=== PATIENT | female | born 1990 | race Caucasian/White ===

== ENCOUNTER 2017-01-04 19:28 | Emergency (ER) | payer BC, OTHER ==
--- NOTE | 2017-01-04 21:58 | ER Document Report ---
ED General - General Chief Complaint: Chest Pain Stated Complaint: CHEST PAIN,SHORTNESS OF BREATH,DIZZY Time Seen by Provider: 01/04/17 21:57 Notes: Patient is a 26-year-old female presents with complaint of chest pain. Chest pain came on suddenly while folding baby close. She also has some associated shortness of breath. Pain is starting to subside. Pain is substernal and nonradiating. No vomiting. No other complaints at this time. She does have history of hypertension. She says her blood pressure was high at that time. She does take propranolol for her high blood pressure. She does have a family history of hypertension. She says that her brother had a heart attack but he did not have stents placed. No other known history of coronary disease. No history of PE or DVT. No recent long trips. No recent surgeries. No recent leg pain or leg swelling. TRAVEL OUTSIDE OF THE [place] IN LAST 30 DAYS: No - Related Data Allergies/Adverse Reactions: No Known Allergies Allergy (Verified 01/05/16 06:04) Past Medical History - Social History Smoking Status: Never Smoker Frequency of alcohol use: None Drug Abuse: None Family History: Reviewed & Not Pertinent, DM Patient has suicidal ideation: No Patient has homicidal ideation: No - Past Medical History Cardiac Medical History: Reports: Hx Hypertension Denies: Hx Heart Attack Pulmonary Medical History: Reports: Hx Asthma - CHILDHOOD, Hx Pneumonia - CHILD X3 Denies: Hx Bronchitis, Hx COPD, Hx Tuberculosis Neurological Medical History: Denies: Hx Seizures Renal/ Medical History: Denies: Hx Peritoneal Dialysis GI Medical History: Reports: Hx Gastritis Musculoskeltal Medical History: Reports Hx Arthritis - WITH Psychiatric Medical History: Denies: Hx Depression Past Surgical History: Reports: Hx Cholecystectomy, Hx Orthopedic Surgery. Denies: Hx Hysterectomy - Immunizations Hx Diphtheria, Pertussis, Tetanus Vaccination: No Hx Pneumococcal Vaccination: 05/25/14 Review of Systems - Review of Systems Notes: My Normal Review Basic REVIEW OF SYSTEMS: CONSTITUTIONAL : Denies fever, chills, or sweats. Denies recent illness. EENT: Denies eye, ear, throat, or mouth pain or symptoms. Denies nasal or sinus congestion. CARDIOVASCULAR: Had chest pain RESPIRATORY: Denies cough, cold, or chest congestion. Denies shortness of breath, difficulty breathing, or wheezing. GASTROINTESTINAL: Denies abdominal pain. Denies nausea, vomiting, or diarrhea. Denies constipation. Last BM: GENITOURINARY: Denies difficulty urinating, painful urination, burning, frequency, or blood in urine. MUSCULOSKELETAL: Denies neck or back pain or joint pain or swelling. SKIN: Denies rash or skin lesions. NEUROLOGICAL: Denies altered mental status or loss of consciousness. Denies headache. Denies weakness or paralysis or loss of use of either side. Denies problems with gait or speech. Denies sensory or motor loss. ALL OTHER SYSTEMS REVIEWED AND NEGATIVE. Physical Exam - Vital signs Vitals: Temp Pulse Resp BP Pulse Ox 99.5 F 111 H 20 136/90 H 99 01/04/17 20:17 01/04/17 20:17 01/04/17 20:17 01/04/17 20:01/04/17 20:17 - Notes Notes: General Appearance: Well nourished, alert, cooperative, no acute distress, no obvious discomfort. Well-appearing. Vitals: reviewed, See vital signs table. Head: no swelling or tenderness to the head Eyes: PERRL, EOMI, Conjuctiva clear Mouth: No decreasd moisture Lungs: No wheezing, No rales, No rhonci, No accessory muscle use, good air exchange bilaterally. Heart: Normal rate, Regular rythm, No murmur, no rub Abdomen: Normal BS, soft, No rigidity, No abdominal tenderness, No guarding, no rebound, no abdominal masses, no organomegaly Extremities: strength 5/5 in all extremities, good pulses in all extremities, no swelling or tenderness in the extremities, no edema. Skin: warm, dry, appropriate color, no rash Neuro: speech clear, oriented x 3, normal affect, responds appropriately to questions. Course - Re-evaluation Re-evalutation: 01/05/17 07:09 D-dimer is obtained patient was initially tachycardic when she arrived. D- dimer was positive and therefore CT images obtained and this was negative for PE. Patient troponin is negative. I did not suspect coronary disease based on her age. She does have history of hypertension and it is now much better controlled. At this time I feel she is safe to be discharged home. Encouraged her follow-up closely with her primary care doctor. Encouraged to return here if she has worsening pain, difficulty breathing, fevers, or feels unwell. Patient agrees with plan and will be discharged home. Dictation of this chart was performed using voice recognition software; therefore, there may be some unintended grammatical errors. - Vital Signs Vital signs: Temp Pulse Resp BP Pulse Ox 99.5 F 111 H 17 115/84 97 01/04/17 20:17 01/04/17 20:17 01/05/17 02:54 01/05/17 02:54 01/05/17 02:53 - Laboratory Result Diagrams: 01/04/17 21:57 01/04/17 21:57 Laboratory results interpreted by me: 01/04/17 01/04/17 01/04/17 21:57 21:57 21:57 Seg Neutrophils % 41.6 L Lymphocytes % 45.3 H D-Dimer 0.65 H Carbon Dioxide 20 L AST 54 H ALT 118 H Creatine Kinase 183 H Total Protein 8.5 H - EKG Interpretation by Me Additional EKG results interpreted by me: 01/04/17 21:57 EKG is reviewed and interpreted by me. EKG shows sinus tachycardia with a rate of [address] segment elevation or depression. No ischemic T-wave inversions. NM interval, QRS duration, QTc intervals are within normal range. No old EKG available for comparison. Discharge - Discharge Clinical Impression: Chest pain Qualifiers: Chest pain type: unspecified Qualified Code(s): R07.9 - Chest pain, unspecified Condition: Good Disposition: HOME, SELF-CARE Additional Instructions: CHEST PAIN OF UNCLEAR CAUSE: The exact cause of your chest pain isn't clear. Fortunately, there is no evidence of a dangerous medical condition. Further testing may be required to find the source of the pain. Most often, we find that this pain is coming from the chest wall -- the muscles or rib joints in the chest. But chest pain can come from the lung and lung lining, the esophagus, the heart valves or heart lining, and even the stomach or gallbladder. Rest. Eat lightly until the pain is gone. We may prescribe medicine for pain and inflammation. You should call the physician immediately if the pain radiates to the shoulder, jaw or arms; if you start to run a fever or develop a cough; or if you develop shortness of breath, or other new or alarming symptoms. NORMAL EXAM AND WORKUP: At this time, your examination and workup show no significant abnormality. No significant abnormal physical findings were noted. All laboratory, EKG, and imaging (x-ray, CT scans) studies that were ordered show no significant abnormality. Although your examination and all studies that were ordered showed no significant abnormal finding, there are no examinations and no studies that are 100% accurate. There is always the possibility that some abnormality could exist and not be detected with physical examination or within the limits and capabilities of laboratory and other studies. You should return or follow up as you were instructed on your visit today for further evaluation if your symptoms do not resolve. FOLLOW-UP CARE: If you have been referred to a physician for follow-up care, call the physician s office for an appointment as you were instructed or within the next two days. If you experience worsening or a significant change in your symptoms, notify the physician immediately or return to the Emergency Department at any time for re-evaluation. Please return follow up with your doctor in 3-5 days for close reevaluation. please return to the ER immediately if you have worsening pain, difficulty breathing, fevers, or feel unwell. Forms: Return to Work
--- NOTE | 2017-01-04 22:16 | RADIOLOGY REPORT (SQ) ---
EXAM DESCRIPTION: CHEST SINGLE VIEW COMPLETED DATE/TIME: 01/04/2017 9:57 pm REASON FOR STUDY: CP/ SOB COMPARISON: 11/04/2015 EXAM PARAMETERS: NUMBER OF VIEWS: One view. TECHNIQUE: Single frontal radiographic view of the chest acquired. RADIATION DOSE: NA LIMITATIONS: None. FINDINGS: LUNGS AND PLEURA: No opacities, masses or pneumothorax. No pleural effusion. MEDIASTINUM AND HILAR STRUCTURES: No masses. Contour normal. HEART AND VASCULAR STRUCTURES: Heart normal in size. Normal vasculature. BONES: No acute findings. HARDWARE: None in the chest. OTHER: No other significant finding. IMPRESSION: NO ACUTE RADIOGRAPHIC FINDING IN THE CHEST. TECHNICAL DOCUMENTATION: JOB ID: [id number]
[2017-01-04 22:23] LABS: ABSOLUTE BASOPHILS # (AUTO) 0.1 10^3/uL (0.0-0.2); ABSOLUTE EOSINOPHILS # (AUTO) 0.1 10^3/uL (0.0-0.6); ABSOLUTE LYMPHOCYTES (AUTO) 2.8 10^3/uL (0.5-4.7); ABSOLUTE MONOCYTES (AUTO) 0.6 10^3/uL (0.1-1.4); ABSOLUTE NEUT (AUTO) 2.6 10^3/uL (1.7-8.2); EOSINOPHILS % (AUTO) 2.4 % (0-6); HEMATOCRIT 42.3 % (36.0-47.0); HEMOGLOBIN 14.2 g/dL (12.0-15.5); HGB HCT DIFFERENCE 0.3; LYMPHOCYTES % (AUTO) 45.3 % (13-45); MEAN CORPUSCULAR HEMOGLOBIN 30.3 pg (27.0-33.4); MEAN CORPUSCULAR HGB CONC 33.5 g/dL (32.0-36.0); MEAN CORPUSCULAR VOLUME 90 fl (80-97); MONOCYTES % (AUTO) 9.7 % (3-13); RED BLOOD COUNT 4.69 10^6/uL (3.72-5.28); RED CELL DISTRIBUTION WIDTH 12.7 % (11.5-14.0); SEGMENTED NEUTROPHILS % (AUTO) 41.6 % (42-78); WHITE BLOOD COUNT 6.2 10^3/uL (4.0-10.5)
[2017-01-04 22:41] LABS: ALANINE AMINOTRANSFERASE 118 U/L (9-52); ALKALINE PHOSPHATASE 71 U/L (38-126); ANION GAP 15 (5-19); ASPARTATE AMINO TRANSFERASE 54 U/L (14-36); BILIRUBIN,DIRECT 0.3 mg/dL (0.0-0.4); BILIRUBIN,TOTAL 0.4 mg/dL (0.2-1.3); BLOOD UREA NITROGEN 18 mg/dL (7-20); CALCIUM 10.2 mg/dL (8.4-10.2); CARBON DIOXIDE 20 mmol/L (22-30); CHLORIDE 107 mmol/L (98-107); CREATINE KINASE 183 U/L (30-135); CREATININE RESULT 0.55 mg/dL (0.52-1.25); GLUCOSE 93 mg/dL (75-110); POTASSIUM 3.8 mmol/L (3.6-5.0); TOTAL PROTEIN 8.5 g/dL (6.3-8.2)
[2017-01-04 22:55] LABS: TROPONIN I < 0.012 ng/mL
[2017-01-04] MEDS ORDERED: NORMAL SALINE 1000 ML 1,000 ML IV ONE (23:36)
--- NOTE | 2017-01-05 01:29 | RADIOLOGY REPORT (SQ) ---
EXAM DESCRIPTION: CTA CHEST COMPLETED DATE/TIME: 01/05/2017 1:08 am REASON FOR STUDY: chest pain, dyspnea COMPARISON: 2.4.14 TECHNIQUE: CT scan of the chest performed using helical scanning technique with dynamic intravenous contrast injection. Images reviewed with lung, soft tissue and bone windows. Reconstructed coronal and sagittal MPR images reviewed. Additional 3 dimensional post-processing performed to develop Maximal Intensity Projection images (CA P). All images stored on PACS. All CT scanners at this facility use dose modulation, iterative reconstruction, and/or weight based d osing when appropriate to reduce radiation dose to as low as reasonably achievable (ALARA). [facility]: Dose Right [facility]: CareDose [facility]: Dose Right [facility]: Teradose 4D [facility]: IronPearl CONTRAST TYPE AND DOSE: contrast/concentration: Isovue 370.00 mg/ml; Total Contrast Delivered: 100.0 ml; Total Saline Delivered: 40.0 ml RENAL FUNCTION: Creatinine 0.6 RADIATION DOSE: Up-to-date CT equipment and radiation dose reduction techniques were employed. CTDIv ol: 27.4 mGy. DLP: 787 mGy-cm. . LIMITATIONS: None. FINDINGS: LUNGS AND PLEURA: 2, 3 mm noncalcified pulmonary nodules of the left lower lobe without jaramillo spicious interval change compared with prior exam from 08/06/2013. AORTA AND GREAT VESSELS: No aneurysm or dissection. HEART: No pericardial effusion. PULMONARY ARTERIES: No emboli visualized in the main pulmonary arteries or the segmental branches. HILAR AND MEDIASTINAL STRUCTURES: No identified masses or abnormal nodes. Minimal residual thymic ti ssue in the anterior mediastinum. HARDWARE: None in the chest. UPPER ABDOMEN: Moderate hepatic steatosis. Cholecystectomy clips. 0.3 cm likely benign cortical cys t of the left kidney, upper pole. THYROID AND OTHER SOFT TISSUES: No masses. No adenopathy. BONES: No acute or significant finding. 3D MIPS: Confirm above findings. OTHER: No other significant finding. IMPRESSION: No acute or suspicious findings. NO PULMONARY EMBOLI. TECHNICAL DOCUMENTATION: JOB ID: [id number] Quality ID # [id number]: Final reports with documentation of one or more dose reduction techniques (e.g., Au tomated exposure control, adjustment of the mA and/or kV according to patient size, use of iterative reconstruction technique) 2010 [employer]- All Rights Reserved
[2017-01-05 03:02] VITALS: BP 115/84
--- NOTE | 2017-01-05 07:57 | EKG REPORT ---
SEVERITY:- OTHERWISE NORMAL ECG - SINUS TACHYCARDIA : Confirmed by: David Lovell MD 05-Jan-2017 07:56:33
== END 2017-01-05 03:02 | disposition home or self-care (01) ==
LOC: ER 19:28
DX: R07.9 Chest pain, unspecified (principal); R06.02 Shortness of breath; R42 Dizziness and giddiness
CPT/HCPCS: 36415; 71010; 71275; 80053; 82550; 82553; 84484; 84703; 85025; 85379; 93005; 93010; 99285

== ENCOUNTER 2018-08-18 04:55 | Emergency (ER) | payer BC, OTHER ==
[2018-08-18] MEDS ORDERED: NORMAL SALINE 1000 ML 1,000 ML IV ONE ×2 (06:13→07:40)
[2018-08-18 06:38] LABS: ABSOLUTE EOSINOPHILS # (AUTO) 0.1 10^3/uL (0.0-0.6); ABSOLUTE MONOCYTES (AUTO) 0.2 10^3/uL (0.1-1.4); ABSOLUTE NEUT (AUTO) 2.7 10^3/uL (1.7-8.2); BASOPHILS % (AUTO) 0.4 % (0-2); EOSINOPHILS % (AUTO) 2.6 % (0-6); HEMATOCRIT 39.9 % (36.0-47.0); HEMOGLOBIN 13.9 g/dL (12.0-15.5); LYMPHOCYTES % (AUTO) 40.1 % (13-45); MEAN CORPUSCULAR HEMOGLOBIN 31.6 pg (27.0-33.4); MEAN CORPUSCULAR HGB CONC 34.9 g/dL (32.0-36.0); MEAN CORPUSCULAR VOLUME 90 fl (80-97); MONOCYTES % (AUTO) 4.8 % (3-13); PLATELET COUNT 205 10^3/uL (150-450); RED BLOOD COUNT 4.41 10^6/uL (3.72-5.28); RED CELL DISTRIBUTION WIDTH 12.5 % (11.5-14.0); SEGMENTED NEUTROPHILS % (AUTO) 52.1 % (42-78); TOTAL CELLS COUNTED % (AUTO) 100 %; WHITE BLOOD COUNT 5.1 10^3/uL (4.0-10.5)
[2018-08-18 06:43] LABS: APPEARANCE,URINE CLOUDY; BILIRUBIN,URINE NEGATIVE (NEGATIVE); COLOR,URINE AMBER; GLUCOSE, URINE NEGATIVE (NEGATIVE); KETONES,URINE NEGATIVE (NEGATIVE); LEUKOCYTE ESTERASE,URINE LARGE (NEGATIVE); NITRITE,URINE NEGATIVE (NEGATIVE); PROTEIN,URINE 30 mg/dL (NEGATIVE); URINE SPECIFIC GRAVITY 1.029; UROBILINOGEN,URINE NEGATIVE mg/dL (<2.0)
[2018-08-18 07:00] LABS: ALANINE AMINOTRANSFERASE 454 U/L (9-52); ALBUMIN 4.8 g/dL (3.5-5.0); ALKALINE PHOSPHATASE 89 U/L (38-126); ANION GAP 11 (5-19); ASPARTATE AMINO TRANSFERASE 212 U/L (14-36); BILIRUBIN,DIRECT 0.2 mg/dL (0.0-0.4); BILIRUBIN,TOTAL 0.5 mg/dL (0.2-1.3); BLOOD UREA NITROGEN 17 mg/dL (7-20); CALCIUM 9.9 mg/dL (8.4-10.2); CARBON DIOXIDE 27 mmol/L (22-30); CHLORIDE 106 mmol/L (98-107); GLUCOSE 111 mg/dL (75-110); POTASSIUM 4.2 mmol/L (3.6-5.0); SODIUM 144.2 mmol/L (137-145); TOTAL PROTEIN 7.9 g/dL (6.3-8.2); TRIGLYCERIDES 74 mg/dL (<150)
[2018-08-18 07:35] LABS: ACETAMINOPHEN < 10 ug/mL (10-30); ALCOHOL < 10 mg/dL (NONE DETECTED); LIPASE 9910.4 U/L (23-300); SALICYLATE < 1.0 mg/dL (2.0-20.0)
[2018-08-18] MEDS ORDERED: FAMOTIDINE INJ/PF 20 MG/2 ML SDV IV ONE (07:41)
--- NOTE | 2018-08-18 07:55 | ER Document Report ---
ED General - General Chief Complaint: Abdominal Pain Stated Complaint: ABDOMINAL PAIN Time Seen by Provider: 08/18/18 06:11 Primary Care Provider: DAVE CAMARA PA [Primary Care Provider] - Follow up as needed TRAVEL OUTSIDE OF THE [place] IN LAST 30 DAYS: No - HPI Patient complains to provider of: Epigastric abdominal pain Notes: Patient coming in for evaluation of epigastric abdominal pain. Patient states that history of pancreatitis patient states she has had a gallbladder removed patient states her doctors are unaware why she continues to get pancreatitis patient states pain is similar to that in the past. Patient states she has been able tolerate water however pain is increased whenever she eats food. Patient denies any fevers chills nausea vomiting or diarrhea. Patient is unaware of her status. Patient denies any trauma to the area states symptoms ongoing for the last 48 hours. - Related Data Allergies/Adverse Reactions: No Known Allergies Allergy (Verified 01/05/16 06:04) Past Medical History - Social History Smoking Status: Unknown if Ever Smoked Family History: Reviewed & Not Pertinent, DM Patient has suicidal ideation: No Patient has homicidal ideation: No - Past Medical History Cardiac Medical History: Reports: Hx Hypertension Denies: Hx Heart Attack Pulmonary Medical History: Reports: Hx Asthma - CHILDHOOD, Hx Pneumonia - CHILD X3 Denies: Hx Bronchitis, Hx COPD, Hx Tuberculosis Neurological Medical History: Denies: Hx Seizures Renal/ Medical History: Denies: Hx Peritoneal Dialysis GI Medical History: Reports: Hx Gastritis Musculoskeletal Medical History: Reports Hx Arthritis - WITH Psychiatric Medical History: Denies: Hx Depression Past Surgical History: Reports: Hx Cholecystectomy, Hx Orthopedic Surgery. Denies: Hx Hysterectomy - Immunizations Hx Diphtheria, Pertussis, Tetanus Vaccination: No Hx Pneumococcal Vaccination: 05/25/14 Review of Systems - Review of Systems Constitutional: No symptoms reported EENT: No symptoms reported Cardiovascular: No symptoms reported Respiratory: No symptoms reported Gastrointestinal: Abdominal pain Genitourinary: No symptoms reported Female Genitourinary: No symptoms reported Musculoskeletal: No symptoms reported Skin: No symptoms reported Hematologic/Lymphatic: No symptoms reported Neurological/Psychological: No symptoms reported -: Yes All other systems reviewed and negative Physical Exam - Vital signs Vitals: Temp Pulse Resp BP Pulse Ox 98.7 F 93 18 137/87 H 97 08/18/18 05:00 08/18/18 05:00 08/18/18 05:00 08/18/18 05:00 08/18/18 05:00 Interpretation: Normal - General General appearance: Appears well, Alert - HEENT Head: Normocephalic, Atraumatic Eyes: Normal Pupils: PERRL - Respiratory Respiratory status: No respiratory distress Chest status: Nontender Breath sounds: Normal Chest palpation: Normal - Cardiovascular Rhythm: Regular Heart sounds: Normal auscultation Murmur: No - Abdominal Inspection: Normal Distension: No distension Bowel sounds: Normal Tenderness: Tender - Mild epigastric tenderness Organomegaly: No organomegaly - Back Back: Normal, Nontender - Extremities General upper extremity: Normal inspection, Nontender, Normal color, Normal ROM, Normal temperature General lower extremity: Normal inspection, Nontender, Normal color, Normal ROM, Normal temperature, Normal weight bearing. No: Kj's sign - Neurological Neuro grossly intact: Yes Cognition: Normal Orientation: AAOx4 Jass Coma Scale Eye Opening: Spontaneous [place] Coma Scale Verbal: Oriented [place] Coma Scale Motor: Obeys Commands Jass Coma Scale Total: 15 Speech: Normal Motor strength normal: LUE, RUE, LLE, RLE Sensory: Normal - Psychological Associated symptoms: Normal affect, Normal mood - Skin Skin Temperature: Warm Skin Moisture: Dry Skin Color: Normal Course - Re-evaluation Re-evalutation: 08/18/18 07:54 Laboratory studies do show the patient does have elevation of lipase consistent with pancreatitis. 08/18/18 14:15 Patient has elevation in her lipase however she is able to tolerate p.o. Resting criteria is 1. Patient scratch screen was unable to be performed because of the amount of opiates present declined single at this time. Patient otherwise feeling better after dose of morphine will send the patient home with oral morphine for the next few days diet instructions were given to the patient patient states understanding of need to return to the ER - Vital Signs Vital signs: Temp Pulse Resp BP Pulse Ox 98.3 F 75 18 132/96 H 94 08/18/18 10:50 08/18/18 10:50 08/18/18 05:00 08/18/18 10:50 08/18/18 10:50 - Laboratory Result Diagrams: 08/18/18 05:35 08/18/18 05:35 Laboratory results interpreted by me: 08/18/18 08/18/18 05:35 06:18 Creatinine 0.41 L Glucose 111 H AST 212 H ALT 454 H Lactate Dehydrogenase 371 H Lipase 9910.4 H Urine Protein 30 H Ur Leukocyte Esterase LARGE H Salicylates < 1.0 L Acetaminophen < 10 L Discharge - Discharge Clinical Impression: Acute recurrent pancreatitis, LFT elevation Condition: Good Disposition: HOME, SELF-CARE Instructions: Oral Narcotic Medication ([facility]), Pancreatitis ([facility]) Additional Instructions: Laboratory studies do show signs of acute pink otitis was correlated with your CAT scan there is no complications no signs of infection pseudocyst no signs of any obstruction of your biliary ducts. Highly recommend a clear liquid diet for the next 24-48 hours after that time he can advance as tolerated please avoid foods that are fatty greasy or oily. Please follow-up with your primary care physician. Also recommend following up with the GI physicians listed. Return to the ER if you develop a fever or cannot tolerate fluids. Take pain medic ation as prescribed take nausea medication as prescribed. Prescriptions: Morphine Sulfate [Morphine Ir 15 Mg Tablet] 15 mg PO TID #12 tablet Omeprazole 20 mg PO DAILY #30 capsule. Ondansetron [Zofran Odt 4 mg Tablet] 1 - 2 tab PO Q4H PRN #30 tab.rapdis PRN Reason: For Nausea/Vomiting Forms: Return to Work Referrals: DAVE CAMARA PA [Primary Care Provider] - Follow up as needed
[2018-08-18 07:58] LABS: URINE AMPHETAMINES SCREEN NEGATIVE; URINE BARBITURATES SCREEN NEGATIVE; URINE BENZODIAZEPINES SCREEN NEGATIVE; URINE COCAINE SCREEN NEGATIVE; URINE MARIJUANA (THC) SCREEN NEGATIVE; URINE METHADONE SCREEN NEGATIVE; URINE PHENCYCLIDINE SCREEN NEGATIVE
[2018-08-18] MEDS ORDERED: ONDANSETRON HCL INJ/PF 4 MG/2 ML SDV IV ONE (08:05)
[2018-08-18] MEDS ORDERED: MORPHINE SULFATE 10 MG/ML INJ IV ONE (08:05)
--- NOTE | 2018-08-18 08:58 | RADIOLOGY REPORT (SQ) ---
EXAM DESCRIPTION: CT ABD/PELVIS WITH IV ONLY COMPLETED DATE/TIME: 08/18/2018 8:27 am REASON FOR STUDY: epi with elevated lipase COMPARISON: CT angio chest 01/05/2017 MRCP 05/25/2014 CT abdomen pelvis 03/01/2014 TECHNIQUE: CT scan of the abdomen and pelvis performed using helical scanning technique with dynamic intravenous contrast injection. No oral contrast. Images reviewed with lung, soft tissue, and bone windows. Reconstructed coronal and sagittal MPR images reviewed. Delayed images for evaluation of the urinary system also acquired. All images stored on PACS. All CT scanners at this facility use dose modulation, iterative reconstruction, and/or weight based d osing when appropriate to reduce radiation dose to as low as reasonably achievable (ALARA). [facility]: Dose Right [facility]: CareDose [facility]: Dose Right [facility]: Teradose 4D [facility]: Tape TV CONTRAST TYPE AND DOSE: contrast/concentration: Isovue 350.00 mg/ml; Total Contrast Delivered: 100.0 ml; Total Saline Delivered: 72.0 ml RENAL FUNCTION: GFR > 60. RADIATION DOSE: CT Rad equipment meets quality standard of care and radiation dose reduction techniq ues were employed. CTDIvol: 18.2 - 20.7 mGy. DLP: 2213 mGy-cm.. LIMITATIONS: None. FINDINGS: LOWER CHEST: No significant findings. No nodules or infiltrates. LIVER: Normal size. No masses. No dilated ducts. SPLEEN: Normal size. No focal lesions. PANCREAS: Pancreatic tail is thickened, there is mild surrounding inflammation throughout the [place] creatic fat without pseudocyst formation. Findings indicate acute pancreatitis. No portal vein or s plenic vein thrombosis GALLBLADDER: Surgically absent ADRENAL GLANDS: No significant masses or asymmetry. RIGHT KIDNEY AND URETER: No solid masses. No significant calcifications. No hydronephrosis or hyd roureter. LEFT KIDNEY AND URETER: No solid masses. No significant calcifications. No hydronephrosis or hydr oureter. AORTA AND VESSELS: No aneurysm. No dissection. Renal arteries, SMA, celiac without stenosis. RETROPERITONEUM: No retroperitoneal adenopathy, hemorrhage or masses. BOWEL AND PERITONEAL CAVITY: No masses or inflammatory changes. No free fluid or peritoneal masses. Few colon diverticuli without CT signs of diverticulitis APPENDIX: Normal. PELVIS: No mass. No free fluid. Normal bladder. ABDOMINAL WALL: No masses. No hernias. BONES: No significant or acute findings. OTHER: No other significant finding. IMPRESSION: Acute pancreatitis Post cholecystectomy TECHNICAL DOCUMENTATION: JOB ID: [id number] Quality ID # [id number]: Final reports with documentation of one or more dose reduction techniques (e.g., Au tomated exposure control, adjustment of the mA and/or kV according to patient size, use of iterative reconstruction technique) 2010 [employer]- All Rights Reserved Reading location - IP/workstation name: [email or web address]
[2018-08-18] MEDS ORDERED: LANSOPRAZOLE 30 MG TAB.RAP.DR PO ONE (10:53)
[2018-08-18 11:08] VITALS: BP 132/96
== END 2018-08-18 11:01 | disposition home or self-care (01) ==
LOC: ER 04:55
DX: K86.1 Other chronic pancreatitis (principal); R79.89 Other specified abnormal findings of blood chemistry; R10.9 Unspecified abdominal pain; R10.13 Epigastric pain; I10 Essential (primary) hypertension
CPT/HCPCS: 99284; 96361; 96374; 96375; 36415; 80307 ×4; 83615; 83690; 84478; 84703; 85025; 80053; 81001; 74177; J2270; J2405; J7030; S0028

== ENCOUNTER 2018-08-18 22:11 | Inpatient (IN) | payer BC ==
[2018-08-18] MEDS ORDERED: HYDROMORPHONE HCL INJ/PF 2 MG/ML AMPULE IV ONE (23:16)
[2018-08-18] MEDS ORDERED: ONDANSETRON HCL INJ/PF 4 MG/2 ML SDV IV ONE (23:16)
[2018-08-18] MEDS ORDERED: NORMAL SALINE 1000 ML 1,000 ML IV ONE (23:17)
[2018-08-18 23:57] LABS: ABSOLUTE EOSINOPHILS # (AUTO) 0.1 10^3/uL (0.0-0.6); ABSOLUTE MONOCYTES (AUTO) 0.3 10^3/uL (0.1-1.4); ABSOLUTE NEUT (AUTO) 5.1 10^3/uL (1.7-8.2); BASOPHILS % (AUTO) 0.3 % (0-2); EOSINOPHILS % (AUTO) 2.1 % (0-6); HEMATOCRIT 39.2 % (36.0-47.0); HEMOGLOBIN 13.8 g/dL (12.0-15.5); MEAN CORPUSCULAR HEMOGLOBIN 31.7 pg (27.0-33.4); MEAN CORPUSCULAR HGB CONC 35.2 g/dL (32.0-36.0); MEAN CORPUSCULAR VOLUME 90 fl (80-97); MONOCYTES % (AUTO) 5.1 % (3-13); PLATELET COUNT 199 10^3/uL (150-450); RED BLOOD COUNT 4.35 10^6/uL (3.72-5.28); RED CELL DISTRIBUTION WIDTH 12.4 % (11.5-14.0); SEGMENTED NEUTROPHILS % (AUTO) 77.5 % (42-78); TOTAL CELLS COUNTED % (AUTO) 100 %; WHITE BLOOD COUNT 6.5 10^3/uL (4.0-10.5)
[2018-08-18 23:58] LABS: ALANINE AMINOTRANSFERASE 386 U/L (9-52); ALBUMIN 4.8 g/dL (3.5-5.0); ALKALINE PHOSPHATASE 82 U/L (38-126); ANION GAP 12 (5-19); ASPARTATE AMINO TRANSFERASE 156 U/L (14-36); BILIRUBIN,DIRECT 0.2 mg/dL (0.0-0.4); BILIRUBIN,TOTAL 0.8 mg/dL (0.2-1.3); BLOOD UREA NITROGEN 10 mg/dL (7-20); CALCIUM 9.7 mg/dL (8.4-10.2); CARBON DIOXIDE 25 mmol/L (22-30); CHLORIDE 105 mmol/L (98-107); GLUCOSE 106 mg/dL (75-110); SODIUM 141.6 mmol/L (137-145); TOTAL PROTEIN 7.7 g/dL (6.3-8.2)
[2018-08-19 00:26] LABS: LIPASE 4430.1 U/L (23-300)
[2018-08-19] MEDS ORDERED: PROMETHAZINE HCL INJ 25 MG/1 ML VIAL IM ONE (00:32)
--- NOTE | 2018-08-19 00:33 | ER Document Report ---
ED General - General Chief Complaint: Abdominal Pain Stated Complaint: DECREASED FLUID INTAKE Time Seen by Provider: 08/18/18 23:00 Primary Care Provider: DAVE CAMARA PA [Primary Care Provider] - Follow up as needed Notes: Patient is a 28-year-old female who has a history of acute recurrent pancreatitis. Looking through records it looks like it happens approximately once a year. Exact cause is not clear. She has had multiple workups which have been negative for etiology. She is her had her gallbladder out. She does not drink alcohol on a regular basis. Her triglycerides are typically normal. She is not a diabetic. She was seen this morning. At that time her lipase was over 9000. CT scan showed inflammation around the pancreas. She said she want to try home therapy. She went home and did not eat any food. She will try to drink liquids. She is been unable to hold down liquids. She does have r ecurrent pain and therefore she came back to the ER. TRAVEL OUTSIDE OF THE [place] IN LAST 30 DAYS: No - Related Data Allergies/Adverse Reactions: No Known Allergies Allergy (Verified 01/05/16 06:04) Past Medical History - Social History Smoking Status: Never Smoker Frequency of alcohol use: Rare Drug Abuse: None Family History: Reviewed & Not Pertinent, DM Patient has suicidal ideation: No Patient has homicidal ideation: No - Past Medical History Cardiac Medical History: Reports: Hx Hypertension Denies: Hx Heart Attack Pulmonary Medical History: Reports: Hx Asthma, Hx Pneumonia Denies: Hx Bronchitis, Hx COPD, Hx Tuberculosis Neurological Medical History: Reports: Hx Migraine. Denies: Hx Seizures Renal/ Medical History: Denies: Hx Peritoneal Dialysis GI Medical History: Reports: Hx Gastritis Musculoskeletal Medical History: Reports Hx Arthritis - WITH Psychiatric Medical History: Denies: Hx Depression Past Surgical History: Reports: Hx Cholecystectomy, Hx Orthopedic Surgery. Denies: Hx Hysterectomy - Immunizations Hx Diphtheria, Pertussis, Tetanus Vaccination: No Hx Pneumococcal Vaccination: 05/25/14 Review of Systems - Review of Systems Notes: My Normal Review Basic REVIEW OF SYSTEMS: CONSTITUTIONAL : Denies fever, chills, or sweats. Denies recent illness. CARDIOVASCULAR: Denies chest pain. RESPIRATORY: Denies cough, cold, or chest congestion. Denies shortness of breath, difficulty breathing, or wheezing. GASTROINTESTINAL: Upper abdominal pain. Recurrent vomiting. GENITOURINARY: Denies difficulty urinating, painful urination, burning, freq uency, or blood in urine. FEMALE GENITOURINARY: Denies vaginal bleeding, abnormal or irregular periods. LMP: MUSCULOSKELETAL: Denies neck or back pain or joint pain or swelling. SKIN: Denies rash or skin lesions. NEUROLOGICAL: Denies altered mental status or loss of consciousness. Denies headache. Denies weakness or paralysis or loss of use of either side. Denies problems with gait or speech. Denies sensory or motor loss. ALL OTHER SYSTEMS REVIEWED AND NEGATIVE. Physical Exam - Vital signs Vitals: Temp Pulse Resp BP Pulse Ox 100.3 F 111 H 23 H 162/101 H 100 08/18/18 22:22 08/18/18 22:22 08/18/18 22:22 08/18/18 22:22 08/18/18 22:22 - Notes Notes: General Appearance: Well nourished, alert, cooperative, no acute distress, moderate obvious discomfort. Vitals: reviewed, See vital signs table. Head: no swelling or tenderness to the head Eyes: PERRL, EOMI, Conjuctiva clear Mouth: No decreasd moisture Lungs: No wheezing, No rales, No rhonci, No accessory muscle use, good air exchange bilaterally. Heart: Tachycardic rate, Regular rythm, No murmur, no rub Abdomen: Normal BS, soft, No rigidity, moderate upper abdominal tenderness to palpation, No guarding, no rebound, no abdominal masses, no organomegaly Extremities: good pulses in all extremities, no edema. Skin: warm, dry, appropriate color, no rash Neuro: speech clear, oriented x 3, normal affect, responds appropriately to questions. Course - Re-evaluation Re-evalutation: 08/19/18 00:33 On reevaluation patient's pain is improving however she still actively vomiting. I have ordered some Phenergan. Her lipase is improving however her symptoms are still consistent she is unable to hold down even liquids and therefore I feel it is appropriate to have her admitted. I will contact the hospitalist for discussion for admission. I spoke with Dr. Pleitez, hospitalist, and he agrees to evaluate the patient for admission. The exact cause of the patient's pancreatitis is not clear. I looked through records and she had multiple workups. Triglycerides are usually normal. She is already had her gallbladder out. Is not clear why she keeps getting pancreatitis. Dictation of this chart was performed using voice recognition software; therefore, there may be some unintended grammatical errors. 08/19/18 00:54 - Vital Signs Vital signs: Temp Pulse Resp BP Pulse Ox 100.3 F 111 H 16 133/87 H 95 08/18/18 22:22 08/18/18 22:22 08/18/18 23:40 08/18/18 23:40 08/18/18 23:40 - Laboratory Result Diagrams: 08/18/18 23:35 08/18/18 23:35 Laboratory results interpreted by me: 08/18/18 23:35 Creatinine 0.46 L AST 156 H ALT 386 H Lipase 4430.1 H Discharge - Discharge Clinical Impression: Acute recurrent pancreatitis Condition: Stable Disposition: ADMITTED OBSERVATION Admitting Provider: Hospitalist Unit Admitted: Medical Floor Referrals: DAVE CAMARA PA [Primary Care Provider] - Follow up as needed
[2018-08-19] MEDS ORDERED: MAG HYDROX/AL HYDROX/SIMETH SUSP 30 ML UDCUP PO PRN (00:55)
[2018-08-19] MEDS ORDERED: ACETAMINOPHEN 650 MG SUPP.RECT PR PRN (00:55)
[2018-08-19] MEDS ORDERED: PROMETHAZINE HCL 25 MG SUPP.RECT PR PRN (00:55)
[2018-08-19] MEDS ORDERED: IPRATROPIUM/ALBUTEROL 0.5-2.5 MG/3 ML AMPUL NEB PRN (00:55)
[2018-08-19] MEDS ORDERED: MAGNESIUM HYDROXIDE SUSP 30 ML UDCUP PO PRN (00:55)
[2018-08-19] MEDS ORDERED: HYDRALAZINE HCL INJ/PF 20 MG/1 ML SDV IV PRN (00:55)
[2018-08-19] MEDS ORDERED: LACTULOSE SYRUP 20 GM/30 ML UDCUP PO ONE (00:55)
[2018-08-19] MEDS ORDERED: HYDROMORPHONE HCL INJ/PF 2 MG/ML AMPULE ONE (01:24)
[2018-08-19] MEDS: HYDROMORPHONE HCL INJ/PF 2 MG/ML AMPULE SUBCUT PRN ×4 (01:27→21:19)
[2018-08-19] MEDS: NORMAL SALINE 1000 ML 1,000 ML IV PRN ×4 (01:42→21:18)
--- NOTE | 2018-08-19 05:43 | PDOC H&P ---
History of Present Illness Admission Date/PCP: 08/19/18 01:01 ALBERTO SOSA Patient complains of: Abdominal pain with nausea History of Present Illness: MARIA G PIERSON is a 28 year old female with a past medical history of migraine headache, morbid obesity, chronically elevated LFTs and recurrent iatrogenic pancreatitis. Patient was seen in the emergency room earlier in the day with a lipase of 9000 treated symptomatically and tolerating clear liquids was sent home only to return several hours later with recurrence of nausea. She is status post cholecystectomy, bilirubin normal, lipase is now 4000 with a temperature of 100.3, earlier CT abdomen showed constipation and inflammation without abscess or necrosis. Patient denies recent viral infection, alcohol or new medications. She receives symptomatic management and referred to the hospitalist for admission. Patient otherwise complains of constipation cannot recall her last normal bowel movement. Past Medical History Cardiac Medical History: Reports: Hypertension Denies: Myocardial Infarction Pulmonary Medical History: Reports: Asthma, Pneumonia Denies: Bronchitis, Chronic Obstructive Pulmonary Disease (COPD), Tuberculosi s Neurological Medical History: Reports: Migraine Denies: Seizures Musculoskeltal Medical History: Reports: Arthritis - WITH Psychiatric Medical History: Denies: Depression Hematology: Denies: Anemia Past Surgical History Past Surgical History: Reports: Cholecystectomy, Orthopedic Surgery Denies: Hysterectomy Social History Smoking Status: Never Smoker Frequency of Alcohol Use: None Hx Recreational Drug Use: No Hx Prescription Drug Abuse: No Family History Family History: Reviewed & Not Pertinent, DM, Other - Father with pancreatitis Parental Family History Reviewed: Yes Children Family History Reviewed: Yes Sibling(s) Family History Reviewed.: Yes Medication/Allergy Home Medications: Butalb/Acetaminophen/Caffeine [Augrrw-Igkccssz-Zdmy 50-325-40] 1 tab PO Q4 PRN 01/05/16 Ondansetron HCl [Zofran 4 mg Tablet] 1 - 2 tab PO Q6 PRN 01/05/16 Propranolol HCl [Propranolol HCl ER] 1 tab PO DAILY 01/05/16 Oxycodone HCl/Acetaminophen [Percocet 5-325 mg Tablet] 1 - 2 tab PO Q4H PRN #30 tablet 01/07/16 Ondansetron HCl [Zofran 4 mg Tablet] 1 - 2 tab PO Q4H PRN #10 tablet 06/21/16 Morphine Sulfate [Morphine Ir 15 Mg Tablet] 15 mg PO TID #12 tablet 08/18/18 Omeprazole 20 mg PO DAILY #30 capsule. 08/18/18 Ondansetron [Zofran Odt 4 mg Tablet] 1 - 2 tab PO Q4H PRN #30 tab.alex 08/18/18 Allergies/Adverse Reactions: No Known Allergies Allergy (Verified 01/05/16 06:04) Review of Systems Constitutional: ABSENT: chills, fever(s), headache(s), weight gain, weight loss Eyes: ABSENT: visual disturbances Ears: ABSENT: hearing changes Cardiovascular: ABSENT: chest pain, dyspnea on exertion, edema, orthropnea, p alpitations Respiratory: ABSENT: cough, hemoptysis Gastrointestinal: PRESENT: as per HPI, abdominal pain, bloating, constipation. ABSENT: diarrhea, hematemesis, hematochezia, nausea, vomiting Genitourinary: ABSENT: dysuria, hematuria Musculoskeletal: ABSENT: joint swelling Integumentary: ABSENT: rash, wounds Neurological: ABSENT: abnormal gait, abnormal speech, confusion, dizziness, focal weakness, syncope Psychiatric: ABSENT: anxiety, depression, homidical ideation, suicidal ideation Endocrine: ABSENT: cold intolerance, heat intolerance, polydipsia, polyuria Hematologic/Lymphatic: ABSENT: easy bleeding, easy bruising Physical Exam Vital Signs: Temp Pulse Resp BP Pulse Ox 100.3 F 111 H 16 111/57 L 97 08/18/18 22:22 08/18/18 22:22 08/19/18 01:34 08/19/18 03:01 08/19/18 02:07 Intake & Output 08/17/18 08/18/18 08/19/18 11:59 11:59 11:59 Intake Total 1000 Balance 1000 Weight 98.8 kg General appearance: PRESENT: cooperative, mild distress, morbidly obese, well- developed, well-nourished Head exam: PRESENT: atraumatic, normocephalic Eye exam: PRESENT: conjunctiva pink, EOMI, PERRLA. ABSENT: scleral icterus Ear exam: PRESENT: normal external ear exam Mouth exam: PRESENT: moist, tongue midline Neck exam: ABSENT: carotid bruit, JVD, lymphadenopathy, thyromegaly Respiratory exam: PRESENT: clear to auscultation werner. ABSENT: rales, rhonchi, wheezes Cardiovascular exam: PRESENT: RRR. ABSENT: diastolic murmur, rubs, systolic murmur Pulses: PRESENT: normal dorsalis pedis pul Vascular exam: PRESENT: normal capillary refill GI/Abdominal exam: PRESENT: normal bowel sounds, soft. ABSENT: distended, guarding, mass, organolmegaly, rebound, tenderness Rectal exam: PRESENT: deferred Extremities exam: PRESENT: full ROM. ABSENT: calf tenderness, clubbing, pedal edema Neurological exam: PRESENT: alert, awake, oriented to person, oriented to place, oriented to time, oriented to situation, CN II-XII grossly intact. ABSENT: motor sensory deficit Psychiatric exam: PRESENT: appropriate affect, normal mood. ABSENT: homicidal ideation, suicidal ideation Skin exam: PRESENT: dry, intact, warm. ABSENT: cyanosis, rash Results Laboratory Results: 08/18/18 23:35 08/18/18 23:35 08/18/18 08/18/18 23:35 23:35 WBC 6.5 RBC 4.35 Hgb 13.8 Hct 39.2 MCV 90 MCH 31.7 MCHC 35.2 RDW 12.4 Plt Count 199 Seg Neutrophils % 77.5 Lymphocytes % 15.0 Monocytes % 5.1 Eosinophils % 2.1 Basophils % 0.3 Absolute Neutrophils 5.1 Absolute Lymphocytes 1.0 Absolute Monocytes 0.3 Absolute Eosinophils 0.1 Absolute Basophils 0.0 Sodium 141.6 Potassium 4.0 Chloride 105 Carbon Dioxide 25 Anion Gap 12 BUN 10 Creatinine 0.46 L Est GFR ( Amer) > 60 Est GFR (Non-Af Amer) > 60 Glucose 106 Calcium 9.7 Total Bilirubin 0.8 AST 156 H ALT 386 H Alkaline Phosphatase 82 Total Protein 7.7 Albumin 4.8 Lipase 4430.1 H Assessment & Plan - Diagnosis (1) Acute recurrent pancreatitis Is this a current diagnosis for this admission?: Yes Plan: Given the lack of alcohol, medications, viral illness, hyperkalemia hyper triglycerides and status post cholecystectomy. Will consult gastroenterology as may require MR CP versus ERCP. Continue symptomatic management and bowel rest. (3) Abdominal pain Qualifiers: Abdominal location: right upper quadrant Qualified Code(s): R10.11 - Right upper quadrant pain (4) LFT elevation Is this a current diagnosis for this admission?: Yes Plan: Recurrent elevation, without cholestatic pattern of alk phos or bilirubin elevation. GI consult - Time Time Spent: 50 to 70 Minutes - Inpatient Certification Medical Necessity: Need Close Monitoring Due to Risk of Patient Decompensation
[2018-08-19] MEDS: HEPARIN SOD (PORCINE) 5,000 UNIT/ML 1 ML SYRINGE SUBCUT SCH ×3 (06:07→21:18)
[2018-08-19] MEDS: KETOROLAC TROMETHAMINE INJ/PF 30 MG/1 ML SDV IV PRN ×2 (06:13→19:21)
[2018-08-19] MEDS: LANSOPRAZOLE 15 MG TAB.RAP.DR PO SCH (09:27)
--- NOTE | 2018-08-19 14:09 | Progress Note ---
Provider Note Provider Note: This is a 28 years old female patient admitted this morning with a diagnosis of acute pancreatitis. Patient has prior multiple episodes of pancreatitis. She reports this she started to have her first pancreatitis in 2013 since then roughly she has had pain attacks. Patient is status post cholecystectomy, no use of alcohol and no drug culprit for her pancreatitis. Probably patient has idiopathic pancreatitis. She has been on aggressive hydration, pain management and bowel rest. Her lipase is still greater than 4000. Accept this patient and follow her.
[2018-08-19] MEDS ORDERED: METHYLPREDNISOLONE INJ 125 MG/2 ML SDV IV ONE (14:23)
[2018-08-19] MEDS ORDERED: PROMETHAZINE HCL INJ 25 MG/1 ML VIAL IV PRN (14:35)
[2018-08-20] MEDS: KETOROLAC TROMETHAMINE INJ/PF 30 MG/1 ML SDV IV PRN ×3 (02:15→21:34)
[2018-08-20 06:12] LABS: ABSOLUTE MONOCYTES (AUTO) 0.1 10^3/uL (0.1-1.4); ABSOLUTE NEUT (AUTO) 5.4 10^3/uL (1.7-8.2); BASOPHILS % (AUTO) 0.1 % (0-2); EOSINOPHILS % (AUTO) 0.1 % (0-6); HEMATOCRIT 35.5 % (36.0-47.0); HEMOGLOBIN 12.6 g/dL (12.0-15.5); LYMPHOCYTES % (AUTO) 15.4 % (13-45); MEAN CORPUSCULAR HEMOGLOBIN 31.6 pg (27.0-33.4); MEAN CORPUSCULAR HGB CONC 35.4 g/dL (32.0-36.0); MEAN CORPUSCULAR VOLUME 89 fl (80-97); MONOCYTES % (AUTO) 2.2 % (3-13); PLATELET COUNT 185 10^3/uL (150-450); RED BLOOD COUNT 3.98 10^6/uL (3.72-5.28); RED CELL DISTRIBUTION WIDTH 12.2 % (11.5-14.0); SEGMENTED NEUTROPHILS % (AUTO) 82.2 % (42-78); TOTAL CELLS COUNTED % (AUTO) 100 %; WHITE BLOOD COUNT 6.6 10^3/uL (4.0-10.5)
[2018-08-20 06:25] LABS: ALANINE AMINOTRANSFERASE 270 U/L (9-52); ALBUMIN 4.5 g/dL (3.5-5.0); ALKALINE PHOSPHATASE 78 U/L (38-126); ANION GAP 13 (5-19); ASPARTATE AMINO TRANSFERASE 77 U/L (14-36); BILIRUBIN,DIRECT 0.2 mg/dL (0.0-0.4); BILIRUBIN,TOTAL 0.4 mg/dL (0.2-1.3); BLOOD UREA NITROGEN 8 mg/dL (7-20); CALCIUM 9.6 mg/dL (8.4-10.2); CARBON DIOXIDE 21 mmol/L (22-30); CHLORIDE 107 mmol/L (98-107); GLUCOSE 96 mg/dL (75-110); LIPASE 565.9 U/L (23-300); POTASSIUM 4.8 mmol/L (3.6-5.0); SODIUM 140.6 mmol/L (137-145); TOTAL PROTEIN 7.1 g/dL (6.3-8.2)
[2018-08-20] MEDS: HEPARIN SOD (PORCINE) 5,000 UNIT/ML 1 ML SYRINGE SUBCUT SCH ×3 (06:42→21:30)
[2018-08-20] MEDS: NORMAL SALINE 1000 ML 1,000 ML IV PRN ×3 (06:45→21:34)
[2018-08-20] MEDS: LANSOPRAZOLE 15 MG TAB.RAP.DR PO SCH (09:39)
[2018-08-20] MEDS ORDERED: METHYLPREDNISOLONE INJ 125 MG/2 ML SDV IV ONE (10:16)
--- NOTE | 2018-08-20 15:07 | PDOC PROGRESS REPORT ---
Subjective Progress Note for:: 08/20/18 Subjective:: I seen patient sitting up in bed. She is awake alert oriented. Her lipase trended down markedly from 4400 to 565 after she got methylprednisolone 125 mg IV stat. Patient does not have history of alcohol abuse, no gallstones since she is status post cholecystectomy, no culprit drug and also no hypertriglyceridemia. 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 Patient is potential discharge in 24- 48 hours once she tolerates p.o. intake. Reason For Visit: ACUTE PANCREATITIS Physical Exam Vital Signs: Temp Pulse Resp BP Pulse Ox 98.0 F 74 15 123/75 96 08/20/18 04:12 08/20/18 11:00 08/20/18 11:00 08/20/18 04:12 08/20/18 04:12 Intake & Output 08/19/18 08/20/18 08/21/18 06:59 06:59 06:59 Intake Total 1999 2912 1000 Output Total 1200 Balance 1999 1712 1000 Weight 98.8 kg 98.2 kg General appearance: PRESENT: no acute distress, well-developed, well-nourished Head exam: PRESENT: atraumatic, normocephalic Eye exam: PRESENT: conjunctiva pink, EOMI, PERRLA. ABSENT: scleral icterus Ear exam: PRESENT: normal external ear exam Mouth exam: PRESENT: moist, tongue midline Neck exam: ABSENT: carotid bruit, JVD, lymphadenopathy, thyromegaly Respiratory exam: PRESENT: clear to auscultation werner. ABSENT: rales, rhonchi, wheezes Cardiovascular exam: PRESENT: RRR. ABSENT: diastolic murmur, rubs, systolic murmur Pulses: PRESENT: normal dorsalis pedis pul Vascular exam: PRESENT: normal capillary refill GI/Abdominal exam: PRESENT: normal bowel sounds, soft. ABSENT: distended, guarding, mass, organolmegaly, rebound, tenderness Rectal exam: PRESENT: deferred Extremities exam: PRESENT: full ROM. ABSENT: calf tenderness, clubbing, pedal edema Neurological exam: PRESENT: alert, awake, oriented to person, oriented to place, oriented to time, oriented to situation, CN II-XII grossly intact. ABSENT: motor sensory deficit Psychiatric exam: PRESENT: appropriate affect, normal mood. ABSENT: homicidal ideation, suicidal ideation Skin exam: PRESENT: dry, intact, warm. ABSENT: cyanosis, rash Results Laboratory Results: 08/20/18 05:16 08/20/18 05:16 08/20/18 08/20/18 05:16 05:16 WBC 6.6 RBC 3.98 Hgb 12.6 Hct 35.5 L MCV 89 MCH 31.6 MCHC 35.4 RDW 12.2 Plt Count 185 Seg Neutrophils % 82.2 H Lymphocytes % 15.4 Monocytes % 2.2 L Eosinophils % 0.1 Basophils % 0.1 Absolute Neutrophils 5.4 Absolute Lymphocytes 1.0 Absolute Monocytes 0.1 Absolute Eosinophils 0.0 Absolute Basophils 0.0 Sodium 140.6 Potassium 4.8 Chloride 107 Carbon Dioxide 21 L Anion Gap 13 BUN 8 Creatinine 0.37 L Est GFR ( Amer) > 60 Est GFR (Non-Af Amer) > 60 Glucose 96 Calcium 9.6 Total Bilirubin 0.4 AST 77 H ALT 270 H Alkaline Phosphatase 78 Total Protein 7.1 Albumin 4.5 Lipase 565.9 H Assessment & Plan - Diagnosis (1) Recurrent acute pancreatitis Is this a current diagnosis for this admission?: Yes Plan: Continue IV hydration, bowel rest and pain medication. (2) Hypertension Qualifiers: Hypertension type: essential hypertension Qualified Code(s): I10 - Essential (primary) hypertension Is this a current diagnosis for this admission?: Yes Plan: Continue current regimen. (3) Morbid obesity with BMI of 40.0-44.9, adult Is this a current diagnosis for this admission?: Yes Plan: Patient advised to do lifestyle modification.
[2018-08-21] MEDS: NORMAL SALINE 1000 ML 1,000 ML IV PRN ×3 (05:11→18:59)
[2018-08-21] MEDS: HEPARIN SOD (PORCINE) 5,000 UNIT/ML 1 ML SYRINGE SUBCUT SCH ×3 (05:13→22:42)
[2018-08-21] MEDS: LANSOPRAZOLE 15 MG TAB.RAP.DR PO SCH (11:21)
--- NOTE | 2018-08-21 14:52 | PDOC CONSULTATION ---
Consultation Consult Date: 08/21/18 Attending physician:: ANGELA MONTILLA Consult reason:: pancreatitis History of Present Illness Admission Date/PCP: 08/19/18 01:01 ALBERTO SOSA History of Present Illness: MARIA G PIERSON is a 28 year old female patient was admitted under the Hospitalist service she was admitted for pancreatitis, etiology is unclear patient had an EGD in the past she does not drink alcohol there are no LFT abnomalities no obvious medications does not have elevated triglycerides her clinical presentation has improved, her numbers are decreasing ? possible etiology Past Medical History Cardiac Medical History: Reports: Hypertension Denies: Myocardial Infarction Pulmonary Medical History: Reports: Asthma, Pneumonia Denies: Bronchitis, Chronic Obstructive Pulmonary Disease (COPD), Tuberculosis Neurological Medical History: Reports: Migraine Denies: Seizures Musculoskeltal Medical History: Reports: Arthritis - WITH Psychiatric Medical History: Denies: Depression Hematology: Denies: Anemia Past Surgical History Past Surgical History: Reports: Cholecystectomy, Orthopedic Surgery Denies: Hysterectomy Social History Smoking Status: Unknown if Ever Smoked Frequency of Alcohol Use: None Hx Recreational Drug Use: No Drugs: None Hx Prescription Drug Abuse: No Family History Family History: Reviewed & Not Pertinent, DM, Other - Father with pancreatitis Parental Family History Reviewed: Yes Children Family History Reviewed: Unknown Sibling(s) Family History Reviewed.: Unknown Medication/Allergy Home Medications: Verapamil HCl [Verapamil ER] 240 mg PO DAILY 08/19/18 Allergies/Adverse Reactions: No Known Allergies Allergy (Verified 08/19/18 13:20) Review of Systems Constitutional: ABSENT: fever(s), headache(s), night sweats, weakness Eyes: ABSENT: visual disturbances Ears: ABSENT: hearing changes Nose, Mouth, and Throat: ABSENT: mouth pain, sore throat Cardiovascular: ABSENT: edema, orthropnea, palpitations Respiratory: ABSENT: dyspnea, hemoptysis Gastrointestinal: ABSENT: nausea, vomiting Genitourinary: ABSENT: dysuria, hematuria Musculoskeletal: ABSENT: deformity, joint swelling Integumentary: ABSENT: lesions, pruritus Neurological: ABSENT: syncope, tingling, tremor(s), vertigo Endocrine: ABSENT: polydipsia, polyphagia, polyuria Hematologic/Lymphatic: ABSENT: easy bruising Physical Exam Vital Signs: Temp Pulse Resp BP Pulse Ox 98.5 F 65 22 H 136/87 H 98 08/21/18 12:58 08/21/18 12:58 08/21/18 12:58 08/21/18 12:58 08/21/18 12:58 Intake & Output 08/20/18 08/21/18 08/22/18 06:59 06:59 06:59 Intake Total 2912 3120 1000 Output Total 1200 1010 Balance 1712 2110 1000 Weight 98.2 kg 97 kg General appearance: PRESENT: no acute distress, well-developed, well-nourished Head exam: PRESENT: atraumatic, normocephalic Eye exam: PRESENT: EOMI, PERRLA. ABSENT: nystagmus, periorbital swelling, scleral icterus Mouth exam: PRESENT: moist, neck supple Throat exam: ABSENT: tonsillar exudate, tonsillogmegaly Neck exam: ABSENT: meningismus, tenderness, thyromegaly GI/Abdominal exam: PRESENT: soft. ABSENT: rebound, rigid, tenderness Extremities exam: ABSENT: joint swelling Musculoskeletal exam: PRESENT: full ROM Neurological exam: PRESENT: oriented to time, oriented to situation, CN II-XII grossly intact Focused psych exam: ABSENT: restlessness Skin exam: PRESENT: normal color. ABSENT: mottled, pallor, petechiae, urticaria, vesicles Results Laboratory Results: 08/20/18 05:16 08/20/18 05:16 08/21/18 05:12 Lipase 680.4 H Assessment & Plan - Diagnosis (1) Acute recurrent pancreatitis Is this a current diagnosis for this admission?: Yes Plan: would recommend checking Igg4, FIGUEROA, AMA to rule out possible autoimmune reasons May need MRCP, the other possibility is pancreatic divisum there is no alcohol to implicate no apparent gallstones unless they are radiolucent she is not on any medications will make sure her triglyceride is normal follow up as outpatient once clinically improved , can be discharged - Time Time Spent: 50 to 70 Minutes
--- NOTE | 2018-08-22 05:58 | PDOC PROGRESS REPORT ---
Subjective Progress Note for:: 08/21/18 Subjective:: Still with some abdominal discomfort but feeling better in general. Reason For Visit: ACUTE PANCREATITIS Physical Exam Vital Signs: Temp Pulse Resp BP Pulse Ox 98.5 F 70 16 140/85 H 99 08/21/18 16:12 08/21/18 16:12 08/21/18 16:12 08/21/18 16:12 08/21/18 16:12 Intake & Output 08/20/18 08/21/18 08/22/18 06:59 06:59 06:59 Intake Total 2912 3120 1000 Output Total 1200 1010 Balance 1712 2110 1000 Weight 98.2 kg 97 kg General appearance: PRESENT: mild distress, obese, well-developed Head exam: PRESENT: atraumatic, normocephalic Eye exam: PRESENT: conjunctiva pink. ABSENT: scleral icterus Ear exam: PRESENT: normal external ear exam Mouth exam: PRESENT: moist, tongue midline Respiratory exam: PRESENT: clear to auscultation werner, symmetrical, unlabored. ABSENT: accessory muscle use, rales, rhonchi, wheezes Cardiovascular exam: PRESENT: RRR, +S1, +S2 GI/Abdominal exam: PRESENT: normal bowel sounds, soft, tenderness - Epigastric area. ABSENT: distended Rectal exam: PRESENT: deferred Neurological exam: PRESENT: alert, altered, oriented to person, oriented to place, oriented to time, oriented to situation, CN II-XII grossly intact Psychiatric exam: PRESENT: appropriate affect, normal mood. ABSENT: agitated, anxious Focused psych exam: ABSENT: delusional, restlessness Skin exam: PRESENT: dry, normal color, warm Results Laboratory Results: 08/20/18 05:16 08/20/18 05:16 08/21/18 05:12 Lipase 680.4 H Assessment & Plan - Diagnosis (1) Acute recurrent pancreatitis Is this a current diagnosis for this admission?: Yes Plan: Patient has been seen by Dr. Goldberg. Please see consult note. Suggested lab work has been ordered. The patient's lipase had decreased but showed a slight bump from 500-600. Clinically the patient continues to improve. We will check blood work tomorrow. Will need outpatient follow-up. (2) LFT elevation Is this a current diagnosis for this admission?: Yes Plan: Transaminases continue to improve. Continue to monitor. (3) Abdominal pain Qualifiers: Abdominal location: epigastric Qualified Code(s): R10.13 - Epigastric pain Is this a current diagnosis for this admission?: Yes Plan: Pain greatly improved from admission. Continue pain control regimen. (4) Morbid obesity with BMI of 40.0-44.9, adult Is this a current diagnosis for this admission?: Yes Plan: Encourage diet and exercise. - Time Time Spent with patient: 15-24 minutes Medications reviewed and adjusted accordingly: Yes Anticipated discharge: Home Within: within 48 hours
[2018-08-22 06:17] LABS: ABSOLUTE EOSINOPHILS # (AUTO) 0.1 10^3/uL (0.0-0.6); ABSOLUTE LYMPHOCYTES (AUTO) 3.2 10^3/uL (0.5-4.7); ABSOLUTE MONOCYTES (AUTO) 0.4 10^3/uL (0.1-1.4); ABSOLUTE NEUT (AUTO) 1.9 10^3/uL (1.7-8.2); BASOPHILS % (AUTO) 0.6 % (0-2); EOSINOPHILS % (AUTO) 1.3 % (0-6); HEMOGLOBIN 13.1 g/dL (12.0-15.5); LYMPHOCYTES % (AUTO) 56.6 % (13-45); MEAN CORPUSCULAR HEMOGLOBIN 31.2 pg (27.0-33.4); MEAN CORPUSCULAR HGB CONC 35.5 g/dL (32.0-36.0); MEAN CORPUSCULAR VOLUME 88 fl (80-97); MONOCYTES % (AUTO) 6.9 % (3-13); PLATELET COUNT 198 10^3/uL (150-450); RED BLOOD COUNT 4.21 10^6/uL (3.72-5.28); RED CELL DISTRIBUTION WIDTH 12.6 % (11.5-14.0); SEGMENTED NEUTROPHILS % (AUTO) 34.6 % (42-78); TOTAL CELLS COUNTED % (AUTO) 100 %; WHITE BLOOD COUNT 5.6 10^3/uL (4.0-10.5)
[2018-08-22 06:34] LABS: ALANINE AMINOTRANSFERASE 395 U/L (9-52); ALBUMIN 4.4 g/dL (3.5-5.0); ALKALINE PHOSPHATASE 70 U/L (38-126); ANION GAP 12 (5-19); ASPARTATE AMINO TRANSFERASE 266 U/L (14-36); BILIRUBIN,DIRECT 0.3 mg/dL (0.0-0.4); BILIRUBIN,TOTAL 0.5 mg/dL (0.2-1.3); BLOOD UREA NITROGEN 10 mg/dL (7-20); CALCIUM 9.1 mg/dL (8.4-10.2); CARBON DIOXIDE 24 mmol/L (22-30); CHLORIDE 105 mmol/L (98-107); GLUCOSE 71 mg/dL (75-110); LIPASE 1756.8 U/L (23-300); POTASSIUM 3.4 mmol/L (3.6-5.0); SODIUM 141.3 mmol/L (137-145); TOTAL PROTEIN 7.1 g/dL (6.3-8.2)
[2018-08-22] MEDS: NORMAL SALINE 1000 ML 1,000 ML IV PRN (07:25)
[2018-08-22] MEDS: HEPARIN SOD (PORCINE) 5,000 UNIT/ML 1 ML SYRINGE SUBCUT SCH (07:25)
--- NOTE | 2018-08-22 11:49 | PDOC DISCHARGE SUMMARY ---
General - Admit/Disc Date/PCP Admission Date/Primary Care Provider: 08/19/18 01:01 ALBERTO SOSA Discharge Date: 08/22/18 - Discharge Diagnosis (1) Acute recurrent pancreatitis Is this a current diagnosis for this admission?: Yes Summary: The lipase increased today. The patient did respond to an initial dose of steroid therapy. I am going to place patient on a steroid taper. I have asked her to follow-up with her primary care doctor on Monday for repeat blood work. She needs to schedule appointment with her air purifier servicer for further evaluation. Autoimmune studies have been drawn but the results are not back yet. I did write down the name of the tests for her. Prednisone taper will be 40 mg daily for 5 days, 30 mg daily for 5 days, 20 mg daily for 5 days and then 10 mg daily for 5 days. (2) LFT elevation Is this a current diagnosis for this admission?: Yes Summary: There are mirroring the lipase. She will have repeat blood work Monday. (3) Abdominal pain Is this a current diagnosis for this admission?: Yes Summary: Improved. Will discharge with 10 tablets of Percocet 5-325 mg. (4) Morbid obesity with BMI of 40.0-44.9, adult Is this a current diagnosis for this admission?: Yes Summary: Encourage diet and exercise - Additional Information Discharge Diet: Clear Liquids - Advance slowly Discharge Activity: Activity As Tolerated, Other - Return to work August 27 Prescriptions: Oxycodone HCl/Acetaminophen [Percocet 5-325 mg Tablet] 1 tab PO Q4HP PRN 5 Days #10 tab PRN Reason: For Pain Prednisone [Deltasone 10 mg Tablet] 10 mg PO ASDIR #50 tablet Home Medications: Verapamil HCl [Verapamil ER] 240 mg PO DAILY 08/19/18 Oxycodone HCl/Acetaminophen [Percocet 5-325 mg Tablet] 1 tab PO Q4HP PRN 5 Days #10 tab 08/22/18 Prednisone [Deltasone 10 mg Tablet] 10 mg PO ASDIR #50 tablet 08/22/18 History of Present Illness Patient complains of: Abdominal pain History of Present Illness: MARIA G PIERSON is a 28 year old female with a history of recurrent pancreatitis. She in fact had an ERCP 2 years ago. She had an onset of severe abdominal pain with nausea and vomiting. She presented to the emergency department on the discharged her. The pain got worse and so she returned that night. She was referred to the hospitalist for admission. Hospital Course Hospital Course: She had a relatively benign hospital course. With steroid injection her enzymes improved. Common causes of pancreatitis such as hypertriglyceridemia, alcohol and gallstones were not found. The patient was seen by gastroenterology. It is possibly an autoimmune etiology. The patient's lipase and transaminases were up today however she is feeling better and would like to try an outpatient prednisone taper as opposed to ongoing hospitalization. Therefore I will discharge her home. I did asked that she follow-up with her primary care physician locally for blood work including a liver panel and lipase on Monday. She also needs to follow-up with her air purifier servicer from [facility]. Dr. Silva is the physician who performed her ERCP 2 years ago. Physical Exam Vital Signs: Temp Pulse Resp BP Pulse Ox 98.2 F 65 16 125/79 97 08/22/18 08:42 08/22/18 09:50 08/22/18 09:50 08/22/18 08:42 08/22/18 09:50 Intake & Output 08/21/18 08/22/18 08/23/18 06:59 06:59 06:59 Intake Total 3120 3900 Output Total 1010 3650 Balance 2110 250 Weight 97 kg General appearance: PRESENT: no acute distress, cooperative Respiratory exam: PRESENT: clear to auscultation werner, symmetrical, unlabored. ABSENT: rales, rhonchi, wheezes Cardiovascular exam: PRESENT: RRR, +S1, +S2 GI/Abdominal exam: PRESENT: normal bowel sounds, soft, tenderness - Mild epigastric tenderness Neurological exam: PRESENT: alert, awake, oriented to person, oriented to place, oriented to time, oriented to situation, CN II-XII grossly intact Psychiatric exam: PRESENT: appropriate affect. ABSENT: agitated, anxious Results Laboratory Results: 08/22/18 05:51 08/22/18 05:51 08/22/18 08/22/18 05:51 05:51 WBC 5.6 RBC 4.21 Hgb 13.1 Hct 37.0 MCV 88 MCH 31.2 MCHC 35.5 RDW 12.6 Plt Count 198 Seg Neutrophils % 34.6 L Lymphocytes % 56.6 H Monocytes % 6.9 Eosinophils % 1.3 Basophils % 0.6 Absolute Neutrophils 1.9 Absolute Lymphocytes 3.2 Absolute Monocytes 0.4 Absolute Eosinophils 0.1 Absolute Basophils 0.0 Sodium 141.3 Potassium 3.4 L Chloride 105 Carbon Dioxide 24 Anion Gap 12 BUN 10 Creatinine 0.45 L Est GFR ( Amer) > 60 Est GFR (Non-Af Amer) > 60 Glucose 71 L Calcium 9.1 Total Bilirubin 0.5 AST 266 H ALT 395 H Alkaline Phosphatase 70 Total Protein 7.1 Albumin 4.4 Lipase 1756.8 H Qualifiers - * PATIENT BEING DISCHARGED WITH ANY OF THE FOLLOWING DIAGNOSIS: No Plan Discharge Plan: Plan is as noted above. I did complete paperwork for her temporary leave of absence from work at [employer]. The planned return to work date is August 27. Time Spent: Greater than 30 Minutes
[2018-08-22 14:43] VITALS: BP 134/71
[2018-08-22] MEDS: LANSOPRAZOLE 15 MG TAB.RAP.DR PO SCH (14:50)
[2018-08-22] MEDS: KETOROLAC TROMETHAMINE INJ/PF 30 MG/1 ML SDV IV PRN (14:51)
[2018-08-24 09:32] LABS: ANTINUCLEAR ANTIBODIES Negative (Negative); MITOCHONDRIAL (M2) ANTIBODY <20.0 Units (0.0-20.0)
== END 2018-08-22 15:00 | disposition home or self-care (01) | DRG 439 ==
LOC: ER 22:11 → EH 08-19 01:01 → OBSVTOIN 08-19 01:01 → 2N 08-19 13:29
PROVIDERS: ADMIT Internal Medicine; ATTEND Internal Medicine
PROC: 3E0F73Z Introduction of Anti-inflammatory into Respiratory Tract, Via Natural or Artificial Opening (ICD-10-PCS; principal; 2018-08-19)
PROC: 3E02340 Introduction of Influenza Vaccine into Muscle, Percutaneous Approach (ICD-10-PCS; 2018-08-22)
DX: K85.90 Acute pancreatitis without necrosis or infection, unspecified (principal); Z68.41 Body mass index [BMI] 40.0-44.9, adult; E66.01 Morbid (severe) obesity due to excess calories; K86.1 Other chronic pancreatitis; I10 Essential (primary) hypertension; Z23 Encounter for immunization; Z90.49 Acquired absence of other specified parts of digestive tract; Z83.3 Family history of diabetes mellitus; Z88.8 Allergy status to other drugs, medicaments and biological substances; Z79.899 Other long term (current) drug therapy
CPT/HCPCS: 36415; 80053; 83690; 85025; 86038; 86256; 90471; 90686; 96361; 96372; 96374; 96375; 99285; G0008; J1170; J1644; J1885; J2405; J2550; J2930; J7030

== ENCOUNTER 2019-09-28 02:55 | Emergency (ER) | payer BC ==
[2019-09-28 04:14] LABS: ABSOLUTE EOSINOPHILS # (AUTO) 0.1 10^3/uL (0.0-0.6); ABSOLUTE LYMPHOCYTES (AUTO) 2.4 10^3/uL (0.5-4.7); ABSOLUTE MONOCYTES (AUTO) 0.4 10^3/uL (0.1-1.4); HEMOGLOBIN 13.7 g/dL (12.0-15.5); RED BLOOD COUNT 4.36 10^6/uL (3.72-5.28); TOTAL CELLS COUNTED % (AUTO) 100 %; WHITE BLOOD COUNT 5.6 10^3/uL (4.0-10.5)
[2019-09-28] MEDS ORDERED: KETOROLAC TROMETHAMINE INJ/PF 30 MG/1 ML SDV IV ONE (04:18)
[2019-09-28] MEDS ORDERED: ONDANSETRON HCL INJ/PF 4 MG/2 ML SDV IV ONE (04:18)
[2019-09-28 04:19] LABS: ABSOLUTE NEUT (AUTO) 2.6 10^3/uL (1.7-8.2); BASOPHILS % (AUTO) 0.8 % (0-2); EOSINOPHILS % (AUTO) 2.5 % (0-6); LYMPHOCYTES % (AUTO) 42.5 % (13-45); MEAN CORPUSCULAR HEMOGLOBIN 31.5 pg (27.0-33.4); MEAN CORPUSCULAR HGB CONC 35.3 g/dL (32.0-36.0); MEAN CORPUSCULAR VOLUME 89 fl (80-97); MONOCYTES % (AUTO) 6.8 % (3-13); PLATELET COUNT 211 10^3/uL (150-450); RED CELL DISTRIBUTION WIDTH 12.8 % (11.5-14.0); SEGMENTED NEUTROPHILS % (AUTO) 47.4 % (42-78)
[2019-09-28] MEDS ORDERED: NORMAL SALINE 1000 ML 1,000 ML IV ONE (04:19)
[2019-09-28 04:30] LABS: ALBUMIN 4.5 g/dL (3.5-5.0); ALKALINE PHOSPHATASE 83 U/L (38-126); ANION GAP 9 (5-19); ASPARTATE AMINO TRANSFERASE 217 U/L (14-36); BILIRUBIN,TOTAL 0.2 mg/dL (0.2-1.3); BLOOD UREA NITROGEN 11 mg/dL (7-20); CALCIUM 9.6 mg/dL (8.4-10.2); CARBON DIOXIDE 23 mmol/L (22-30); CHLORIDE 107 mmol/L (98-107); CREATINE KINASE 84 U/L (30-135); GLUCOSE 130 mg/dL (75-110); POTASSIUM 3.9 mmol/L (3.6-5.0); TOTAL PROTEIN 7.6 g/dL (6.3-8.2)
--- NOTE | 2019-09-28 04:36 | RADIOLOGY REPORT (SQ) ---
Chest one view on 09/28/2019 at 4:20 AM CLINICAL INDICATION: Chest pain COMPARISON: 01/04/2017 FINDINGS: The lungs are clear. Cardiac, hilar and mediastinal contours are within normal limits. Pulmonary vascularity is within normal limits. No bony abnormality is noted. IMPRESSION: No active disease.
--- NOTE | 2019-09-28 04:47 | ER Document Report ---
Entered by KRISHNA MESSER SCRIBE 09/28/19 0402 Acting as scribe for:NORAH ORTIZ IV, MD ED General - General Chief Complaint: Chest Pain Stated Complaint: RESPIRATORY ISSUES Time Seen by Provider: 09/28/19 03:59 Primary Care Provider: DAVE CAMARA PA [Primary Care Provider] - Follow up as needed Mode of Arrival: Ambulatory Information source: Patient Notes: This 29 year old female patient presents to the ED today with complaints of c hest pain, cough, and epigastric pain with associated nausea and vomiting for the past x2 days. Patient describes the chest pain as "a lot of pressure on my chest" and that she has been getting sharp pains in her abdomen after she eats. Patient reports that tonight, she ate dinner around 1700 and went to bed around 2000. Patient notes that she can't keep any food down. Patient reports a history of pancreatitis, stating that she usually sticks to soups and pedialyte in her diet; however, she notes that her current symptoms feel different. Patient states that depending on the severity of her flare ups, her symptoms would resolve after taking Tramadol and drinking Pedialyte or with IV fluids. TRAVEL OUTSIDE OF THE [place] IN LAST 30 DAYS: No - Related Data Allergies/Adverse Reactions: No Known Allergies Allergy (Verified 08/19/18 13:20) Home Medications: zantac. verapamil 240 mg. tramadol. wellbutrion Past Medical History - General Information source: Patient, [facility] Records - Social History Smoking Status: Former Smoker Cigarette use (# per day): No Chew tobacco use (# tins/day): No Smoking Education Provided: No Frequency of alcohol use: None Drug Abuse: None Family History: Reviewed & Not Pertinent, DM, Other - Father with pancreatitis Patient has suicidal ideation: No Patient has homicidal ideation: No - Past Medical History Cardiac Medical History: Reports: Hx Hypertension Pulmonary Medical History: Reports: Hx Asthma, Hx Pneumonia Neurological Medical History: Reports: Hx Migraine GI Medical History: Reports: Hx Gastritis, Hx Pancreatitis Musculoskeletal Medical History: Reports Hx Arthritis - WITH Past Surgical History: Reports: Hx Cholecystectomy, Hx Orthopedic Surgery - Immunizations Hx Diphtheria, Pertussis, Tetanus Vaccination: No Hx Pneumococcal Vaccination: 05/25/14 Review of Systems - Review of Systems Constitutional: No symptoms reported EENT: No symptoms reported Cardiovascular: See HPI, Chest pain Respiratory: See HPI, Cough Gastrointestinal: See HPI, Nausea, Vomiting Genitourinary: No symptoms reported Female Genitourinary: No symptoms reported Musculoskeletal: No symptoms reported Skin: No symptoms reported Hematologic/Lymphatic: No symptoms reported Neurological/Psychological: No symptoms reported -: Yes All other systems reviewed and negative Physical Exam - Vital signs Vitals: Temp Pulse Resp BP Pulse Ox 99.0 F 114 H 16 155/98 H 98 09/28/19 03:06 09/28/19 03:06 09/28/19 03:06 09/28/19 03:06 09/28/19 03:06 - General General appearance: Alert - HEENT Head: Normocephalic, Atraumatic Eyes: Normal Pupils: PERRL - Respiratory Respiratory status: No respiratory distress Chest status: Nontender Breath sounds: Normal Chest palpation: Normal - Cardiovascular Rhythm: Regular Heart sounds: Normal auscultation Murmur: No Friction rub: No Gallop: None auscultated - Abdominal Inspection: Normal Distension: No distension Bowel sounds: Normal Tenderness: Tender - Tender to palpate in epigastric region, Other - Abdomen soft Organomegaly: No organomegaly - Back Back: Normal, Nontender - Extremities General upper extremity: Normal inspection General lower extremity: Normal inspection - Neurological Neuro grossly intact: Yes - Psychological Associated symptoms: Normal affect, Normal mood - Skin Skin Temperature: Warm Skin Moisture: Dry Skin Color: Normal Course - Re-evaluation Re-evalutation: 09/28/19 05:28 Results of ED MSE discussed with patient. All questions were answered prior to discharge. Emergency signs and symptoms, reasons to return to the emergency department discussed with patient. - Vital Signs Vital signs: Temp Pulse Resp BP Pulse Ox 99.0 F 114 H 16 130/89 H 99 09/28/19 03:06 09/28/19 03:06 09/28/19 03:06 09/28/19 05:05 09/28/19 05:05 - Laboratory Result Diagrams: 09/28/19 04:03 09/28/19 04:03 Laboratory results interpreted by me: 09/28/19 04:03 Creatinine 0.41 L Glucose 130 H AST 217 H ALT 493 H Discharge - Discharge Clinical Impression: Abdominal pain Qualifiers: Abdominal location: unspecified location Qualified Code(s): R10.9 - Unspecified abdominal pain Nausea and vomiting Qualifiers: Vomiting type: unspecified Vomiting Intractability: non-intractable Qualified Code(s): R11.2 - Nausea with vomiting, unspecified Condition: Good Disposition: HOME, SELF-CARE Instructions: Abdominal Pain ([facility]), Vomiting ([facility]) Additional Instructions: Return to the Emergency Department without delay if any worse. HOME CARE INSTRUCTIONS & INFORMATION: Thank you for choosing us for your medical needs. We hope you're satisfied with the care you received. After you leave, you must properly care for your problem and, at the same time, observe its progress. Any condition can change. Some illnesses can change rapidly over hours or days. If your condition worsens, return to the Emergency Department or see your physician promptly. ABOUT YOUR X-RAYS AND EKG'S: If you had an EKG or X-rays taken, they have been read by the Emergency Physician. The X-rays and EKG's will also be read by a Radiologist or Bacon Slicer within 24 hours. If discrepancies are noted, you will be notified by telephone. Please be certain the ED has a correct telephone number & address where you can be reached. Also, realize that some fractures or abnormalities do not show up on initial X-rays. If your symptoms continue, see your physician. ABOUT YOUR LABORATORY TEST: If you had laboratory tests, the results have been reviewed by the Emergency Physician. Some test results (for example cultures) may not be available for several days. You will be contacted if any test result shows you need additional treatment. Please be certain the ED has a correct telephone number and address where you can be reached. ABOUT YOUR MEDICATIONS: You will receive instructions on how to take your medicine on the prescription label you receive. Additional information may be provided by the Pharmacy. If you have questions afterwards, call the ED for clarification or further instructions. Some prescribed medications may cause drowsiness. Do not perform tasks such as driving a car or operating machinery without consulting your Pharmacist. If you feel you need a refill of pain medication, your condition will need re-evaluation. Please do not call for a refill of any medication. ABOUT YOUR SIGNATURE: Signature of this document acknowledges to followin. Understanding that you received emergency treatment and that you may be released before al medical problems are known or treated. Please be certain the ED has a correct phone number & address where you can be reached. 2. Acknowledgement that you will arrange for follow-up care as recommended. 3. Authorization for the Emergency Physician to provide information to your follow-up Physician in order to maximize your care. AT ANY TIME, IF YOUR SYMPTOMS CHANGE SIGNIFICANTLY OR WORSEN OR YOU DEVELOP NEW SYMPTOMS, RETURN TO THE EMERGENCY DEPARTMENT IMMEDIATELY FOR RE-EVALUATION. OUR GOAL IS TO PROVIDE EXCELLENT MEDICAL CARE! WE HOPE THAT WE HAVE MET YOUR EXPECTATIONS DURING YOUR EMERGENCY DEPARTMENT VISIT AND THAT YOU FEEL YOU HAVE RECEIVED EXCELLENT CARE! Prescriptions: Promethazine HCl [Phenergan 25 mg Tablet] 1 tab PO Q6H PRN #15 tablet PRN Reason: nausea Referrals: DAVE CAMARA PA [Primary Care Provider] - Follow up as needed I personally performed the services described in the documentation, reviewed and edited the documentation which was dictated to the scribe in my presence, and it accurately records my words and actions.
[2019-09-28 05:15] LABS: CREATINE KINASE MB 0.28 ng/mL (<4.55)
[2019-09-28 05:16] LABS: TROPONIN I < 0.012 ng/mL
[2019-09-28 06:03] VITALS: BP 138/91
--- NOTE | 2019-09-28 09:58 | EKG REPORT ---
SEVERITY:- OTHERWISE NORMAL ECG - SINUS TACHYCARDIA : Confirmed by: David Lovell MD 28-Sep-2019 09:57:16
== END 2019-09-28 06:03 | disposition home or self-care (01) ==
LOC: ER 02:55
DX: R10.13 Epigastric pain (principal); R11.2 Nausea with vomiting, unspecified; R07.9 Chest pain, unspecified; R05 Cough
CPT/HCPCS: 93005; 99285; 96361; 96374; 96375; 36415; 82553; 82550; 83690; 85025; 80053; 84484; 71045; 93010; J1885; J2405; J7030

== ENCOUNTER 2020-01-03 14:13 | Emergency (ER) | payer BC ==
--- NOTE | 2020-01-03 16:06 | ER Document Report ---
ED Medical Screen (RME) - General Chief Complaint: Numbness of Face Stated Complaint: TINGLING FACE/ARM Time Seen by Provider: 01/03/20 15:57 Primary Care Provider: DAVE CAMARA PA [Primary Care Provider] - Follow up as needed TRAVEL OUTSIDE OF THE [place] IN LAST 30 DAYS: No - HPI Notes: 01/03/20 16:03 21-year-old female with a history of hypertension, pancreatitis, migraines re ports that she woke up this morning at 5 AM with facial numbness, states this lasted for 4 hours and then resolved itself but then started having bilateral hand numbness and tingling, dizziness and nausea with a dull headache that started 3 hours later. Patient states she is on the Depakote shot, unsure of her last menstrual cycle. Former smoker. States her father had a CVA and an IN, unsure about her mother. Patient's PCP is no a candidate. Patient denies prior history of having any vertigo, dizziness, numbness or tingling of her extremities. Denies any abdominal pain, chest pain, shortness of breath, fever, chills, neck pain I have greeted and performed a rapid initial assessment of this patient. A comprehensive ED assessment and evaluation of the patient, analysis of test results and completion of the medical decision making process will be conducted by additional ED providers. PHYSICAL EXAMINATION: GENERAL: Well-appearing, well-nourished and in no acute distress. HEAD: Atraumatic, normocephalic. EYES: Pupils equal round extraocular movements intact, conjunctiva are normal. NECK: Normal range of motion CV: s1, s2 regular LUNGS: No respiratory distress Musculoskeletal: Normal range of motion NEUROLOGICAL: Normal speech, normal gait. SKIN: Warm, Dry, normal turgor, no rashes or lesions noted. - Related Data Allergies/Adverse Reactions: No Known Allergies Allergy (Verified 01/03/20 15:59) Past Medical History - Past Medical History Cardiac Medical History: Reports: Hx Hypertension Denies: Hx Heart Attack Pulmonary Medical History: Reports: Hx Asthma, Hx Pneumonia Denies: Hx Bronchitis, Hx COPD, Hx Tuberculosis Neurological Medical History: Reports: Hx Migraine. Denies: Hx Seizures Renal/ Medical History: Denies: Hx Peritoneal Dialysis GI Medical History: Reports: Hx Gastritis, Hx Pancreatitis Musculoskeltal Medical History: Reports Hx Arthritis - WITH Psychiatric Medical History: Denies: Hx Depression Past Surgical History: Reports: Hx Cholecystectomy, Hx Orthopedic Surgery. Denies: Hx Hysterectomy - Immunizations Hx Diphtheria, Pertussis, Tetanus Vaccination: No Physical Exam - Vital signs Vitals: Temp Pulse Resp BP Pulse Ox 99.2 F 111 H 18 164/105 H 99 01/03/20 14:17 01/03/20 14:17 01/03/20 14:17 01/03/20 14:17 01/03/20 14:17 Course - Vital Signs Vital signs: Temp Pulse Resp BP Pulse Ox 99.2 F 111 H 18 164/105 H 99 01/03/20 14:17 01/03/20 14:17 01/03/20 14:17 01/03/20 14:17 01/03/20 14:17 Doctor's Discharge - Discharge Referrals: DAVE CAMARA PA [Primary Care Provider] - Follow up as needed
[2020-01-03 16:49] LABS: ABSOLUTE BASOPHILS # (AUTO) 0.1 10^3/uL (0.0-0.2); ABSOLUTE EOSINOPHILS # (AUTO) 0.1 10^3/uL (0.0-0.6); ABSOLUTE LYMPHOCYTES (AUTO) 2.6 10^3/uL (0.5-4.7); ABSOLUTE MONOCYTES (AUTO) 0.4 10^3/uL (0.1-1.4); ABSOLUTE NEUT (AUTO) 2.7 10^3/uL (1.7-8.2); BASOPHILS % (AUTO) 0.9 % (0-2); EOSINOPHILS % (AUTO) 1.7 % (0-6); HEMOGLOBIN 14.4 g/dL (12.0-15.5); LYMPHOCYTES % (AUTO) 44.7 % (13-45); MEAN CORPUSCULAR HGB CONC 35.2 g/dL (32.0-36.0); MEAN CORPUSCULAR VOLUME 91 fl (80-97); MONOCYTES % (AUTO) 6.5 % (3-13); PLATELET COUNT 216 10^3/uL (150-450); RED CELL DISTRIBUTION WIDTH 12.9 % (11.5-14.0); SEGMENTED NEUTROPHILS % (AUTO) 46.2 % (42-78); TOTAL CELLS COUNTED % (AUTO) 100 %; WHITE BLOOD COUNT 5.7 10^3/uL (4.0-10.5)
[2020-01-03 17:02] LABS: APPEARANCE,URINE SLIGHTLY-CLOUDY; BILIRUBIN,URINE NEGATIVE (NEGATIVE); COLOR,URINE YELLOW; GLUCOSE, URINE NEGATIVE (NEGATIVE); KETONES,URINE NEGATIVE (NEGATIVE); LEUKOCYTE ESTERASE,URINE NEGATIVE (NEGATIVE); NITRITE,URINE NEGATIVE (NEGATIVE); PROTEIN,URINE 30 mg/dL (NEGATIVE); UROBILINOGEN,URINE NEGATIVE mg/dL (<2.0)
--- NOTE | 2020-01-03 17:07 | RADIOLOGY REPORT (SQ) ---
EXAM DESCRIPTION: CT HEAD WITHOUT IMAGES COMPLETED DATE/TIME: 01/03/2020 4:47 pm REASON FOR STUDY: N/T face, arms w/ dizziness, sudden onset COMPARISON: 06/21/2016 TECHNIQUE: Axial images acquired through the brain without intravenous contrast. Images reviewed wi th bone, brain and subdural windows. Additional sagittal and coronal reconstructions were generated. Images stored on PACS. All CT scanners at this facility use dose modulation, iterative reconstruction, and/or weight based d osing when appropriate to reduce radiation dose to as low as reasonably achievable (ALARA). [facility]: Dose Right [facility]: CareDose [facility]: Dose Right [facility]: Teradose 4D [facility]: Smart Masher RADIATION DOSE: CT Rad equipment meets quality standard of care and radiation dose reduction techniq ues were employed. CTDIvol: 53.2 mGy. DLP: 964 mGy-cm. mGy. LIMITATIONS: None. FINDINGS: VENTRICLES: Normal size and contour. CEREBRUM: No masses. No hemorrhage. No midline shift. No evidence for acute infarction. Normal gra y/white matter differentiation. No areas of low density in the white matter. CEREBELLUM: No masses. No hemorrhage. No alteration of density. No evidence for acute infarction. EXTRAAXIAL SPACES: No fluid collections. No masses. ORBITS AND GLOBE: No intra- or extraconal masses. Normal contour of globe without masses. CALVARIUM: No fracture. PARANASAL SINUSES: No fluid or mucosal thickening. SOFT TISSUES: No mass or hematoma. OTHER: No other significant finding. IMPRESSION: NORMAL BRAIN CT WITHOUT CONTRAST. EVIDENCE OF ACUTE STROKE: NO. COMMENT: Quality ID # [id number]: Final reports with documentation of one or more dose reduction techniques (e.g., Automated exposure control, adjustment of the mA and/or kV according to patient size, use of iterative reconstruction technique) TECHNICAL DOCUMENTATION: JOB ID: [id number] 2010 [email or web address]- All Rights Reserved Reading location - IP/workstation name: [email or web address]
[2020-01-03 17:10] LABS: ALBUMIN 4.9 g/dL (3.5-5.0); ALKALINE PHOSPHATASE 110 U/L (38-126); ANION GAP 9 (5-19); ASPARTATE AMINO TRANSFERASE 134 U/L (14-36); BILIRUBIN,TOTAL 0.5 mg/dL (0.2-1.3); BLOOD UREA NITROGEN 10 mg/dL (7-20); CALCIUM 9.8 mg/dL (8.4-10.2); CARBON DIOXIDE 23 mmol/L (22-30); CHLORIDE 106 mmol/L (98-107); GLUCOSE 114 mg/dL (75-110); PHOSPHORUS 3.2 mg/dL (2.5-4.5); POTASSIUM 4.1 mmol/L (3.6-5.0); TOTAL PROTEIN 8.1 g/dL (6.3-8.2)
[2020-01-03] MEDS ORDERED: NORMAL SALINE 1000 ML 1,000 ML IV ONE (19:42)
[2020-01-03] MEDS ORDERED: METOCLOPRAMIDE HCL INJ/PF 10 MG/2 ML SDV IV ONE (19:42)
[2020-01-03] MEDS ORDERED: DIPHENHYDRAMINE HCL 50 MG/ML VIAL IV ONE (19:42)
[2020-01-03] MEDS ORDERED: KETOROLAC TROMETHAMINE INJ/PF 30 MG/1 ML SDV IV ONE (19:42)
--- NOTE | 2020-01-03 19:46 | ER Document Report ---
Doctor's Note Notes: 01/03/20 19:42 Bedside nurse asked me to reevaluate patient because she says her headache is getting worse. She was reevaluated at bedside. reevaluation of patient while waiting to be seen by a physician. CT of head is negative for any acute findings per radiologist. She reports that her headache is getting worse, feels close to her migraines. Patient is denying any chest pain shortness of breath nausea vomiting diarrhea, numbness or tingling down arms or legs, neck pain, fevers or chills. Discussed with patient that we can start a migraine cocktail while she is waiting to be seen by a emergency room provider. Patient was agreeable this plan of care. Vital signs are stable. In no distress.
--- NOTE | 2020-01-03 22:06 | EKG REPORT ---
SEVERITY:- NORMAL ECG - SINUS RHYTHM : Confirmed by: Mabel Ring MD 03-Jan-2020 22:05:55
[2020-01-03 22:13] VITALS: BP 151/97
--- NOTE | 2020-01-04 05:39 | ER Document Report ---
Entered by KRISHNA MESSER SCRIBE 01/03/202128 Acting as scribe for:NORAH ORTIZ IV, MD ED General - General Chief Complaint: Dizziness Stated Complaint: TINGLING FACE/ARM Time Seen by Provider: 01/03/20 15:57 Primary Care Provider: DAVE CAMARA PA [Primary Care Provider] - Follow up as needed Mode of Arrival: Ambulatory Information source: Patient Notes: This 29 year old female patient presents to the ED today with complaints of num bness/tingling to her face that started around 0500 this morning. Patient states that the numbness to her face subsided around 0900, but not long after that, she developed the N/T to her LUE and left 3rd-5th digits. She reports that she went to work around 1300, but only stayed about x1 hour because she felt nauseous and dizzy. She denies eating any food today and reports a family history of diabe gianna. She also notes a headache. Denies shortness of breath, fever, chills, or injury. TRAVEL OUTSIDE OF THE [place] IN LAST 30 DAYS: No - Related Data Allergies/Adverse Reactions: No Known Allergies Allergy (Verified 01/03/20 19:36) Past Medical History - General Information source: Patient - Social History Smoking Status: Former Smoker Cigarette use (# per day): No Chew tobacco use (# tins/day): No Smoking Education Provided: No Frequency of alcohol use: None Drug Abuse: None Family History: Reviewed & Not Pertinent, DM, Other - Father with pancreatitis Patient has suicidal ideation: No Patient has homicidal ideation: No - Past Medical History Cardiac Medical History: Reports: Hx Hypertension Pulmonary Medical History: Reports: Hx Asthma, Hx Pneumonia Neurological Medical History: Reports: Hx Migraine GI Medical History: Reports: Hx Gastritis, Hx Pancreatitis Musculoskeletal Medical History: Reports Hx Arthritis - WITH Past Surgical History: Reports: Hx Cholecystectomy, Hx Orthopedic Surgery - Immunizations Hx Diphtheria, Pertussis, Tetanus Vaccination: No Hx Pneumococcal Vaccination: 05/25/14 Review of Systems - Review of Systems Constitutional: See HPI. denies: Chills, Fever EENT: No symptoms reported Cardiovascular: See HPI, Dizziness Respiratory: See HPI. denies: Short of breath Gastrointestinal: See HPI, Nausea Genitourinary: No symptoms reported Female Genitourinary: No symptoms reported Musculoskeletal: No symptoms reported Skin: No symptoms reported Hematologic/Lymphatic: No symptoms reported Neurological/Psychological: See HPI, Headaches, Numbness, Tingling -: Yes All other systems reviewed and negative Physical Exam - Vital signs Vitals: Temp Pulse Resp BP Pulse Ox 99.2 F 111 H 18 164/105 H 99 01/03/20 14:17 01/03/20 14:17 01/03/20 14:17 01/03/20 14:17 01/03/20 14:17 - General General appearance: Alert In distress: None - HEENT Head: Normocephalic, Atraumatic Eyes: Normal Pupils: PERRL - Respiratory Respiratory status: No respiratory distress Chest status: Nontender Breath sounds: Normal Chest palpation: Normal - Cardiovascular Rhythm: Regular Heart sounds: Normal auscultation Murmur: No Friction rub: No Gallop: None auscultated - Abdominal Inspection: Normal Distension: No distension Bowel sounds: Normal Tenderness: Nontender - Abdomen soft Organomegaly: No organomegaly - Back Back: Normal, Nontender - Extremities General upper extremity: Normal inspection General lower extremity: Normal inspection. No: Edema - Neurological Neuro grossly intact: Yes Orientation: AAOx4 Jass Coma Scale Eye Opening: Spontaneous Jass Coma Scale Verbal: Oriented [place] Coma Scale Motor: Obeys Commands Jass Coma Scale Total: 15 Notes: Numbness/tingling to LUE - Psychological Associated symptoms: Normal affect, Normal mood - Skin Skin Temperature: Warm Skin Moisture: Dry Skin Color: Normal Course - Re-evaluation Re-evalutation: 01/03/20 21:29 Results of ED MSE discussed with patient. All questions were answered prior to discharge. Symptoms do not seem to be consistent with Yuan's palsy, CVA, TIA, electrolyte abnormality or trauma. There does not appear to be a obvious etiology for the patient's symptoms. Patient was instructed to call 911 if her symptoms returned or worsened. Patient instructed to follow-up with her primary care provider on Monday. Other emergency signs and symptoms, reasons to return to the emergency department discussed with patient. - Vital Signs Vital signs: Temp Pulse Resp BP Pulse Ox 98.8 F 87 16 126/71 H 96 01/03/20 20:54 01/03/20 20:54 01/03/20 20:54 01/03/20 20:54 01/03/20 20:54 - Laboratory Result Diagrams: 01/03/20 16:25 01/03/20 16:25 Laboratory results interpreted by me: 01/03/20 01/03/20 15:25 16:25 Creatinine 0.44 L Glucose 114 H Magnesium 2.4 H AST 134 H ALT 305 H Urine Protein 30 H - Diagnostic Test Radiology reviewed: Reports reviewed - EKG Interpretation by Me Additional EKG results interpreted by me: 01/03/20 21:31 EKG performed on 01/03/2020 at 1615 hrs. was interpreted by this MD. Findings: Normal sinus rhythm, rate 95, normal axis, P waves preceding QRS complexes, QRS complexes appear narrow, there are no obvious patterns of ST segment elevation or depression present to suggest acute myocardial ischemia or infarction. Impression normal sinus rhythm with nonspecific ST segments. Discharge - Discharge Clinical Impression: Complaint of paresthesia Condition: Stable Disposition: HOME, SELF-CARE Additional Instructions: Return to the Emergency Department without delay if any worse. You have been diagnosed with paresthesias. Paresthesias refer to nonspecific numbness and tingling without an obvious cause. If you have return or worsening symptoms call 911 immediately. We cannot find any obvious cause for your paresthesias but there does not seem to be any evidence of a emergency medical condition at this time. HOME CARE INSTRUCTIONS & INFORMATION: Thank you for choosing us for your [facility] needs. We hope you're satisfied with the care you received. After you leave, you must properly care for your problem and, at the same time, observe its progress. Any condition can change. Some illnesses can change rapidly over hours or days. If your condition worsens, return to the Emergency Department or see your physician promptly. ABOUT YOUR X-RAYS AND EKG'S: If you had an EKG or X-rays taken, they have been read by the Emergency Physician. The X-rays and EKG's will also be read by a Radiologist or Interior Design Program Chair within 24 hours. If discrepancies are noted, you will be notified by telephone. Please be certain the ED has a correct telephone number & address where you can be reached. Also, realize that some fractures or abnormalities do not show up on initial X-rays. If your symptoms continue, see your physician. ABOUT YOUR LABORATORY TEST: If you had laboratory tests, the results have been reviewed by the Emergency Physician. Some test results (for example cultures) may not be available for several days. You will be contacted if any test result shows you need additional treatment. Please be certain the ED has a correct telephone number and address where you can be reached. ABOUT YOUR MEDICATIONS: You will receive instructions on how to take your medicine on the prescription label you receive. Additional information may be provided by the Pharmacy. If you have questions afterwards, call the ED for clarification or further instructions. Some prescribed medications may cause drowsiness. Do not perform tasks such as driving a car or operating machinery without consulting your Pharmacist. If you feel you need a refill of pain medication, your condition will need re-evaluation. Please do not call for a refill of any medication. ABOUT YOUR SIGNATURE: Signature of this document acknowledges to followin. Understanding that you received emergency treatment and that you may be released before al medical problems are known or treated. Please be certain the ED has a correct phone number & address where you can be reached. 2. Acknowledgement that you will arrange for follow-up care as recommended. 3. Authorization for the Emergency Physician to provide information to your follow-up Physician in order to maximize your care. AT ANY TIME, IF YOUR SYMPTOMS CHANGE SIGNIFICANTLY OR WORSEN OR YOU DEVELOP NEW SYMPTOMS, RETURN TO THE EMERGENCY DEPARTMENT IMMEDIATELY FOR RE-EVALUATION. OUR GOAL IS TO PROVIDE EXCELLENT MEDICAL CARE! WE HOPE THAT WE HAVE MET YOUR EXPECTATIONS DURING YOUR EMERGENCY DEPARTMENT VISIT AND THAT YOU FEEL YOU HAVE RECEIVED EXCELLENT CARE! Referrals: DAVE CAMARA PA [Primary Care Provider] - Follow up as needed I personally performed the services described in the documentation, reviewed and edited the documentation which was dictated to the scribe in my presence, and it accurately records my words and actions.
== END 2020-01-03 22:13 | disposition home or self-care (01) ==
LOC: ER 14:13
DX: R20.2 Paresthesia of skin (principal); R20.0 Anesthesia of skin; R42 Dizziness and giddiness; I10 Essential (primary) hypertension; Z90.49 Acquired absence of other specified parts of digestive tract
CPT/HCPCS: 93005; 99284; 96361; 96374; 96375; 36415; 82962; 83735; 84100; 85025; 81025; 80053; 81001; 70450; 93010; J1200; J1885; J2765; J7030

== ENCOUNTER 2020-05-02 01:29 | Emergency (ER) | payer BC ==
[2020-05-02] MEDS ORDERED: ONDANSETRON HCL INJ/PF 4 MG/2 ML SDV IV ONE (02:46)
[2020-05-02] MEDS ORDERED: MORPHINE SULFATE 10 MG/ML INJ IV ONE (02:46)
[2020-05-02] MEDS ORDERED: NORMAL SALINE 1000 ML 1,000 ML IV ONE (02:46)
--- NOTE | 2020-05-02 02:59 | ER Document Report ---
ED General - General Chief Complaint: Flank Pain Stated Complaint: FLANK PAIN Time Seen by Provider: 05/02/20 02:38 Primary Care Provider: DAVE CAMARA PA [Primary Care Provider] - Follow up as needed TRAVEL OUTSIDE OF THE [place] IN LAST 30 DAYS: No - HPI Notes: Patient is a 29-year-old female with a history of autoimmune pancreatitis and HTN who presents midepigastric pain that began 2 days ago. Patient states her pain is consistent with her past pancreatitis flares. She reports nausea and vomiting. She states she called her primary care at the onset of her symptoms and was advised to come to the ED if her pain became severe. She called her custody assistant and made an appointment for May 11, 2020. She states she has not eaten 32 hours but did have some diet Pepsi which worsened her symptoms. She denies chest pain, shortness of breath, diarrhea, fever, and chills. Patient has a history of cholecystectomy. Patient denies tobacco, alcohol, and recreational drug use. - Related Data Allergies/Adverse Reactions: No Known Allergies Allergy (Verified 01/03/20 19:36) Home Medications: tramodol. xanax. zofran Past Medical History - General Information source: Patient - Social History Smoking Status: Never Smoker Chew tobacco use (# tins/day): No Frequency of alcohol use: None Drug Abuse: None Family History: DM, Other - Father with pancreatitis - Past Medical History Cardiac Medical History: Reports: Hx Hypertension Denies: Hx Heart Attack Pulmonary Medical History: Reports: Hx Asthma, Hx Pneumonia Denies: Hx Bronchitis, Hx COPD, Hx Tuberculosis Neurological Medical History: Reports: Hx Migraine. Denies: Hx Seizures Renal/ Medical History: Denies: Hx Peritoneal Dialysis GI Medical History: Reports: Hx Gastritis, Hx Pancreatitis Musculoskeletal Medical History: Reports Hx Arthritis - WITH Psychiatric Medical History: Denies: Hx Depression Past Surgical History: Reports: Hx Cholecystectomy, Hx Orthopedic Surgery. Denies: Hx Hysterectomy - Immunizations Hx Diphtheria, Pertussis, Tetanus Vaccination: No Hx Pneumococcal Vaccination: 05/25/14 Review of Systems - Review of Systems Constitutional: No symptoms reported EENT: No symptoms reported Cardiovascular: No symptoms reported Respiratory: No symptoms reported Gastrointestinal: See HPI Genitourinary: No symptoms reported Female Genitourinary: No symptoms reported Musculoskeletal: No symptoms reported Skin: No symptoms reported Hematologic/Lymphatic: No symptoms reported Neurological/Psychological: No symptoms reported Physical Exam - Vital signs Vitals: Temp Pulse Resp BP Pulse Ox 99.2 F 116 H 16 138/83 H 100 05/02/20 01:55 05/02/20 01:55 05/02/20 01:55 05/02/20 01:55 05/02/20 01:55 - Notes Notes: PHYSICAL EXAMINATION: VITALS: Vitals reviewed - tachycardia. GENERAL: Well-appearing, well-nourished and in no acute distress. HEAD: Atraumatic, normocephalic. EYES: Pupils equal, round, and reactive to light, extraocular movements intact, sclera anicteric, conjunctiva are normal. ENT: Nares patent. Moist mucous membranes. Oropharynx clear without exudates. NECK: Normal range of motion, supple without lymphadenopathy. LUNGS: Breath sounds clear to auscultation bilaterally and equal. No wheezes, rales, or rhonchi. HEART: Tachycardia with regular rhythm without murmurs. ABDOMEN: Significant tenderness to the midepigastric area with guarding. Soft, abdomen with normoactive bowel sounds. No rebound. No masses appreciated. EXTREMITIES: Normal range of motion, no pitting or edema. No cyanosis. NEUROLOGICAL: No focal neurological deficits. Moves all extremities spontaneously and on command. PSYCH: Normal mood, normal affect. SKIN: Warm, Dry, normal turgor, no rashes or lesions noted. Course - Re-evaluation Re-evalutation: Patient is a 29-year-old female with a history of autoimmune pancreatitis who presents with midepigastric pain that began 2 days ago. Patient is tachycardic but vital signs are otherwise unremarkable. On exam, significant tenderness to the epigastric area with guarding. Morphine 4 mg IV, Zofran 4 mg IV, and 1 L of normal saline ordered. CBC unremarkable and within normal limits. CMP shows elevated AST of 66 and an elevated ALT of 160, however both of these are improved from prior values. Glucose of 133. UA shows specific gravity of 1.037 and elevated glucose >500. Lipase is normal at 200.7. Patient reevaluated afte r morphine given and reports some improvement of her pain. A dose of Carafate and Pepcid ordered for symptom relief and PO challenge. 05/02/20 06:20 Patient is feeling much better after Carafate and Pepcid. Discussed with patient that presentation and work-up are consistent with gastritis. Patient will be discharged home with a prescription for Carafate and Pepcid. I recommended she keep her appointment with GI on 05/11/2020. Return precautions and follow-up instructions given. Patient understands and agrees with plan. - Vital Signs Vital signs: Temp Pulse Resp BP Pulse Ox 98.5 F 99 16 128/72 H 98 05/02/20 05:05 05/02/20 05:05 05/02/20 01:55 05/02/20 05:05 05/02/20 05:05 - Laboratory Result Diagrams: 05/02/20 03:03 05/02/20 03:03 Laboratory results interpreted by me: 05/02/20 05/02/20 05/02/20 03:03 03:03 03:03 Lymph % (Auto) 48.2 H Seg Neutrophils % 41.8 L Carbon Dioxide 21 L Creatinine 0.48 L Glucose 133 H AST 66 H ALT 160 H Urine Glucose (UA) >=500 H Urine Ketones TRACE H Discharge - Discharge Clinical Impression: Gastritis Qualifiers: Gastritis type: unspecified gastritis Chronicity: acute Gastritis bleeding: without bleeding Qualified Code(s): K29.00 - Acute gastritis without bleeding Abdominal pain Qualifiers: Abdominal location: epigastric Qualified Code(s): R10.13 - Epigastric pain Nausea and vomiting Qualifiers: Vomiting type: unspecified Vomiting Intractability: non-intractable Qualified Code(s): R11.2 - Nausea with vomiting, unspecified Disposition: HOME, SELF-CARE Additional Instructions: Gastritis You have an inflammation of the stomach called gastritis. This commonly causes upper abdominal pain, nausea, and vomiting. In severe cases, bleeding of the stomach lining can occur. Gastritis can be caused by bacteria or viruses, alcohol, or stomach-irritating drugs. Begin with sips of clear liquids. Take increasing amounts of fluid over the first 24 hours. Then start small amounts of bland foods (such as dry toast, applesauce, mashed potato). Gradually resume your usual diet. You should take antacids every two hours until the pain has subsided. Acid-suppressing drugs may be prescribed as well. Avoid aspirin, caffeine, tobacco, and alcohol. If the abdominal pain worsens, or there is evidence of major bleeding in the stomach (such as black, tarry stool, bloody or black vomit, or lightheadedness), you should return immediately. Call the doctor if you aren't improved in 24 to 36 hours. Prescriptions: Sucralfate [Carafate 1 gm Tablet] 1 gm PO ACHS #30 tablet Famotidine [Pepcid 20 mg Tablet] 20 mg PO BID #12 tablet Referrals: DAVE CAMARA PA [Primary Care Provider] - Follow up as needed
[2020-05-02 04:05] LABS: ABSOLUTE BASOPHILS # (AUTO) 0.1 10^3/uL (0.0-0.2); ABSOLUTE EOSINOPHILS # (AUTO) 0.1 10^3/uL (0.0-0.6); ABSOLUTE MONOCYTES (AUTO) 0.4 10^3/uL (0.1-1.4); ABSOLUTE NEUT (AUTO) 2.6 10^3/uL (1.7-8.2); BASOPHILS % (AUTO) 0.9 % (0-2); EOSINOPHILS % (AUTO) 2.2 % (0-6); HEMOGLOBIN 14.3 g/dL (12.0-15.5); LYMPHOCYTES % (AUTO) 48.2 % (13-45); MEAN CORPUSCULAR HEMOGLOBIN 31.9 pg (27.0-33.4); MEAN CORPUSCULAR HGB CONC 35.6 g/dL (32.0-36.0); MEAN CORPUSCULAR VOLUME 89 fl (80-97); MONOCYTES % (AUTO) 6.9 % (3-13); PLATELET COUNT 243 10^3/uL (150-450); RED BLOOD COUNT 4.47 10^6/uL (3.72-5.28); RED CELL DISTRIBUTION WIDTH 12.7 % (11.5-14.0); SEGMENTED NEUTROPHILS % (AUTO) 41.8 % (42-78); TOTAL CELLS COUNTED % (AUTO) 100 %; WHITE BLOOD COUNT 6.1 10^3/uL (4.0-10.5)
[2020-05-02 04:09] LABS: APPEARANCE,URINE SLIGHTLY-CLOUDY; BILIRUBIN,URINE NEGATIVE (NEGATIVE); COLOR,URINE YELLOW; GLUCOSE, URINE >=500 mg/dL (NEGATIVE); KETONES,URINE TRACE mg/dL (NEGATIVE); LEUKOCYTE ESTERASE,URINE NEGATIVE (NEGATIVE); NITRITE,URINE NEGATIVE (NEGATIVE); PROTEIN,URINE NEGATIVE (NEGATIVE); URINE SPECIFIC GRAVITY 1.037; UROBILINOGEN,URINE NEGATIVE mg/dL (<2.0)
[2020-05-02 04:18] LABS: ALBUMIN 4.9 g/dL (3.5-5.0); ALKALINE PHOSPHATASE 88 U/L (38-126); ANION GAP 13 (5-19); ASPARTATE AMINO TRANSFERASE 66 U/L (14-36); BILIRUBIN,DIRECT 0.1 mg/dL (0.0-0.4); BILIRUBIN,TOTAL 0.5 mg/dL (0.2-1.3); BLOOD UREA NITROGEN 19 mg/dL (7-20); CALCIUM 10.2 mg/dL (8.4-10.2); CARBON DIOXIDE 21 mmol/L (22-30); CHLORIDE 105 mmol/L (98-107); GLUCOSE 133 mg/dL (75-110); POTASSIUM 3.6 mmol/L (3.6-5.0); TOTAL PROTEIN 7.8 g/dL (6.3-8.2)
[2020-05-02 05:05] VITALS: BP 128/72
[2020-05-02] MEDS ORDERED: SUCRALFATE 1 GM TABLET PO ONE (05:05)
[2020-05-02] MEDS ORDERED: FAMOTIDINE 20 MG TABLET PO ONE (05:05)
== END 2020-05-02 06:42 | disposition home or self-care (01) ==
LOC: ER 01:29
DX: R10.9 Unspecified abdominal pain (principal); K29.00 Acute gastritis without bleeding; R10.13 Epigastric pain; R11.2 Nausea with vomiting, unspecified; I10 Essential (primary) hypertension; Z90.49 Acquired absence of other specified parts of digestive tract
CPT/HCPCS: 99284; 96361; 96374; 96375; 36415; 83690; 84703; 85025; 80053; 81001; J2270; J2405; J7030

== ENCOUNTER 2020-06-16 08:08 | Emergency (ER) | payer BC ==
[2020-06-16 10:35] LABS: ABSOLUTE LYMPHOCYTES (AUTO) 1.4 10^3/uL (0.5-4.7); ABSOLUTE MONOCYTES (AUTO) 0.6 10^3/uL (0.1-1.4); ABSOLUTE NEUT (AUTO) 9.6 10^3/uL (1.7-8.2); BASOPHILS % (AUTO) 0.2 % (0-2); HEMATOCRIT 39.9 % (36.0-47.0); MEAN CORPUSCULAR HEMOGLOBIN 31.5 pg (27.0-33.4); MEAN CORPUSCULAR HGB CONC 35.1 g/dL (32.0-36.0); MEAN CORPUSCULAR VOLUME 90 fl (80-97); MONOCYTES % (AUTO) 5.6 % (3-13); PLATELET COUNT 185 10^3/uL (150-450); RED BLOOD COUNT 4.44 10^6/uL (3.72-5.28); RED CELL DISTRIBUTION WIDTH 12.9 % (11.5-14.0); SEGMENTED NEUTROPHILS % (AUTO) 82.2 % (42-78); TOTAL CELLS COUNTED % (AUTO) 100 %; WHITE BLOOD COUNT 11.7 10^3/uL (4.0-10.5)
--- NOTE | 2020-06-16 10:54 | ER Document Report ---
ED General - General Chief Complaint: Abdominal Pain Stated Complaint: STOMACH PAIN Time Seen by Provider: 06/16/20 10:21 Primary Care Provider: DAVE CAMARA PA [Primary Care Provider] - Follow up in 3-5 days Mode of Arrival: Ambulatory Information source: Patient TRAVEL OUTSIDE OF THE [place] IN LAST 30 DAYS: No - HPI Notes: Patient presents with right lower quadrant pain since last evening. She has had some nausea but no vomiting she is also had some constipation and pain with bowel movements. She states when she has a bowel movement it hurts in her abdomen but not around her rectum. No problems with urination no problems with vaginal symptoms or . Patient states she has chronic pancreatitis which is felt to be autoimmune. she states the pain is been constant. Its moderate to severe. It is a sharp sensation and radiates to her lower back. It is worse with movement and better with rest. - Related Data Allergies/Adverse Reactions: No Known Allergies Allergy (Verified 06/16/20 10:23) Home Medications: verapamil, buproprion, jardiance Past Medical History - General Information source: Patient - Social History Smoking Status: Never Smoker Chew tobacco use (# tins/day): No Frequency of alcohol use: None Drug Abuse: None Family History: DM, Other - Father with pancreatitis Patient has homicidal ideation: No - Past Medical History Cardiac Medical History: Reports: Hx Hypertension Denies: Hx Heart Attack Pulmonary Medical History: Reports: Hx Asthma, Hx Pneumonia Denies: Hx Bronchitis, Hx COPD, Hx Tuberculosis Neurological Medical History: Reports: Hx Migraine. Denies: Hx Seizures Renal/ Medical History: Denies: Hx Peritoneal Dialysis GI Medical History: Reports: Hx Gastritis, Hx Pancreatitis Musculoskeletal Medical History: Reports Hx Arthritis - WITH Psychiatric Medical History: Denies: Hx Depression Past Surgical History: Reports: Hx Cholecystectomy, Hx Orthopedic Surgery. Denies: Hx Hysterectomy - Immunizations Hx Diphtheria, Pertussis, Tetanus Vaccination: No Hx Pneumococcal Vaccination: 05/25/14 Review of Systems - Review of Systems Constitutional: denies: Chills, Fever Cardiovascular: denies: Chest pain, Palpitations Respiratory: denies: Cough, Short of breath -: Yes All other systems reviewed and negative Physical Exam - Vital signs Vitals: Temp Pulse Resp BP Pulse Ox 100.2 F 120 H 22 H 168/95 H 96 06/16/20 08:38 06/16/20 08:38 06/16/20 08:38 06/16/20 08:38 06/16/20 08:38 Interpretation: Hypertensive, Tachycardic - General General appearance: Appears well, Alert - HEENT Head: Normocephalic, Atraumatic Eyes: Normal Pupils: PERRL - Respiratory Respiratory status: No respiratory distress Chest status: Nontender Breath sounds: Normal Chest palpation: Normal - Cardiovascular Rhythm: Tachycardia Heart sounds: Normal auscultation Murmur: No - Abdominal Inspection: Normal Distension: No distension Bowel sounds: Normal Tenderness: Tender - Bilateral lower quadrants with some voluntary guarding Organomegaly: No organomegaly - Back Back: Normal, Nontender - Extremities General upper extremity: Normal inspection, Nontender, Normal color, Normal ROM, Normal temperature General lower extremity: Normal inspection, Nontender, Normal color, Normal ROM, Normal temperature, Normal weight bearing. No: Kj's sign - Neurological Neuro grossly intact: Yes Cognition: Normal Orientation: AAOx4 Jass Coma Scale Eye Opening: Spontaneous [place] Coma Scale Verbal: Oriented Jass Coma Scale Motor: Obeys Commands Jass Coma Scale Total: 15 Speech: Normal Motor strength normal: LUE, RUE, LLE, RLE Sensory: Normal - Psychological Associated symptoms: Normal affect, Normal mood - Skin Skin Temperature: Warm Skin Moisture: Dry Skin Color: Normal Course - Re-evaluation Re-evalutation: 06/16/20 17:44 Patient presents with significant abdominal pain. CT scan shows diverticulitis with no evidence of perforation or abscess. She is not toxic appearing. She is mildly tachycardic but this is significantly improved after pain medicine and 2 L of fluid. She also received antibiotics. She has no significant comorbidities. I believe patient can be discharged home to take antibiotics pain medicine and nausea medicine and follow-up with her physician. - Vital Signs Vital signs: Temp Pulse Resp BP Pulse Ox 100.2 F 120 H 22 H 168/95 H 96 06/16/20 08:38 06/16/20 08:38 06/16/20 08:38 06/16/20 08:38 06/16/20 08:38 - Laboratory Results Result Diagrams: 06/16/20 10:18 06/16/20 10:18 Laboratory Results Interpreted: 06/16/20 06/16/20 06/16/20 10:18 10:18 10:39 WBC 11.7 H Lymph % (Auto) 12.0 L Absolute Neuts (auto) 9.6 H Seg Neutrophils % 82.2 H Sodium 136.8 L Carbon Dioxide 21 L Creatinine 0.40 L Glucose 125 H AST 40 H ALT 123 H Urine Protein 30 H Urine Glucose (UA) >=500 H Urine Ketones 80 H Critical Laboratory Results Reviewed: No Critical Results - Radiology Results Critical Radiology Results Reviewed: No Critical Results Discharge - Discharge Clinical Impression: Diverticulitis Condition: Stable Disposition: HOME, SELF-CARE Instructions: Diverticulitis ([facility]) Prescriptions: Amoxicillin/Potassium Clav [Augmentin 875-125 Tablet] 1 tab PO Q12 10 Days #20 tablet Hydrocodone/Acetaminophen [Hondo 5-325 mg Tablet] 1 tab PO Q6 PRN 3 Days #12 tablet PRN Reason: Ondansetron [Zofran Odt 4 mg Tablet] 1 - 2 tab PO Q4H PRN #15 tab.rapdis PRN Reason: For Nausea/Vomiting Forms: Return to Work Referrals: DAVE CAMARA PA [Primary Care Provider] - Follow up in 3-5 days
[2020-06-16 11:03] LABS: ALBUMIN 4.6 g/dL (3.5-5.0); ALKALINE PHOSPHATASE 81 U/L (38-126); ANION GAP 11 (5-19); ASPARTATE AMINO TRANSFERASE 40 U/L (14-36); BILIRUBIN,DIRECT 0.1 mg/dL (0.0-0.4); BILIRUBIN,TOTAL 0.7 mg/dL (0.2-1.3); BLOOD UREA NITROGEN 15 mg/dL (7-20); CALCIUM 9.9 mg/dL (8.4-10.2); CARBON DIOXIDE 21 mmol/L (22-30); CHLORIDE 105 mmol/L (98-107); GLUCOSE 125 mg/dL (75-110); POTASSIUM 4.1 mmol/L (3.6-5.0)
[2020-06-16] MEDS ORDERED: MORPHINE SULFATE 10 MG/ML INJ IV ONE ×3 (11:15→16:46)
[2020-06-16] MEDS ORDERED: ONDANSETRON 4 MG TAB.RAPDIS PO ONE (11:16)
[2020-06-16 11:35] LABS: APPEARANCE,URINE SLIGHTLY-CLOUDY; BILIRUBIN,URINE NEGATIVE (NEGATIVE); COLOR,URINE YELLOW; GLUCOSE, URINE >=500 mg/dL (NEGATIVE); KETONES,URINE 80 mg/dL (NEGATIVE); LEUKOCYTE ESTERASE,URINE NEGATIVE (NEGATIVE); NITRITE,URINE NEGATIVE (NEGATIVE); PROTEIN,URINE 30 mg/dL (NEGATIVE); URINE SPECIFIC GRAVITY 1.035; UROBILINOGEN,URINE NEGATIVE mg/dL (<2.0)
--- NOTE | 2020-06-16 14:18 | RADIOLOGY REPORT (SQ) ---
EXAM DESCRIPTION: CT ABD/PELVIS WITH IV ONLY IMAGES COMPLETED DATE/TIME: 06/16/2020 1:47 pm REASON FOR STUDY: pain rlq COMPARISON: 08/18/18. TECHNIQUE: CT scan of the abdomen and pelvis performed using helical scanning technique with dynamic intravenous contrast injection. No oral contrast. Images reviewed with lung, soft tissue, and bone windows. Reconstructed coronal and sagittal MPR images reviewed. Delayed images for evaluation of the urinary system also acquired. All images stored on PACS. All CT scanners at this facility use dose modulation, iterative reconstruction, and/or weight based d osing when appropriate to reduce radiation dose to as low as reasonably achievable (ALARA). [facility]: Dose Right [facility]: CareDose [facility]: Dose Right [facility]: Teradose 4D [facility]: [employer] CONTRAST TYPE AND DOSE: contrast/concentration: Isovue 350.00 mmol/ml; Total Contrast Delivered: 100 .0 ml; Total Saline Delivered: 40.0 ml RENAL FUNCTION: GFR > 60. RADIATION DOSE: CT Rad equipment meets quality standard of care and radiation dose reduction techniq ues were employed. CTDIvol: NaN - NaN mGy. DLP: 0 mGy-cm.. LIMITATIONS: None. FINDINGS: LOWER CHEST: No significant findings. No nodules or infiltrates. LIVER: Normal size. Mild fatty change. No masses. No dilated ducts. SPLEEN: Normal size. No focal lesions. PANCREAS: No masses. No significant calcifications. No adjacent inflammation or peripancreatic fluid collections. Pancreatic duct not dilated. GALLBLADDER: Surgically absent. ADRENAL GLANDS: No significant masses or asymmetry. RIGHT KIDNEY AND URETER: No solid masses. No significant calcifications. No hydronephrosis or hyd roureter. LEFT KIDNEY AND URETER: No solid masses. No significant calcifications. No hydronephrosis or hydr oureter. AORTA AND VESSELS: No aneurysm. No dissection. Renal arteries, SMA, celiac without stenosis. RETROPERITONEUM: No retroperitoneal adenopathy, hemorrhage or masses. BOWEL AND PERITONEAL CAVITY: Mesenteric inflammation associated with segment of sigmoid colon midlin e pelvis. No free air. No abcess. APPENDIX: Normal. PELVIS: No mass. No free fluid. Normal bladder. ABDOMINAL WALL: No masses. No hernias. BONES: No acute findings. OTHER: No other significant finding. IMPRESSION: SIGMOID DIVERTICULITIS. TECHNICAL DOCUMENTATION: JOB ID: [id number] Quality ID # [id number]: Final reports with documentation of one or more dose reduction techniques (e.g., Au tomated exposure control, adjustment of the mA and/or kV according to patient size, use of iterative reconstruction technique) 2010 [employer]- All Rights Reserved Reading location - IP/workstation name: [email or web address]
[2020-06-16] MEDS ORDERED: LEVOFLOXACIN 750 MG TABLET PO ONE (14:28)
[2020-06-16] MEDS ORDERED: NORMAL SALINE 1000 ML 1,000 ML IV ONE ×2 (14:28→16:46)
[2020-06-16] MEDS ORDERED: ONDANSETRON HCL INJ/PF 4 MG/2 ML SDV IV ONE ×2 (15:05→17:01)
[2020-06-16 18:55] VITALS: BP 123/75
== END 2020-06-16 18:55 | disposition home or self-care (01) ==
LOC: ER 08:08
DX: K57.92 Diverticulitis of intestine, part unspecified, without perforation or abscess without bleeding (principal); K59.00 Constipation, unspecified; R10.9 Unspecified abdominal pain; R11.2 Nausea with vomiting, unspecified; I10 Essential (primary) hypertension; Z90.49 Acquired absence of other specified parts of digestive tract
CPT/HCPCS: 96376; 99285; 96361; 96374; 96375; 36415; 83690; 85025; 81025; 80053; 81001; 74177; S0119; J2270; J2405; J7030

== ENCOUNTER 2020-07-25 18:29 | Emergency (ER) | payer BC ==
[2020-07-25] MEDS ORDERED: ONDANSETRON HCL INJ/PF 4 MG/2 ML SDV IV ONE (19:04)
[2020-07-25] MEDS ORDERED: MORPHINE SULFATE 10 MG/ML INJ IV ONE (19:04)
--- NOTE | 2020-07-25 19:05 | ER Document Report ---
ED Medical Screen (RME) - General Chief Complaint: Abdominal Pain Stated Complaint: ABDOMINAL PAIN,NAUSEA Time Seen by Provider: 07/25/20 19:02 Primary Care Provider: DAVE CAMARA PA [Primary Care Provider] - Follow up as needed Notes: HPI: 30-year-old female with history of autoimmune pancreatitis presenting with mid abdominal pain that has been constant since this morning. Prior history of cholecystectomy. Has had nausea no vomiting. Low-grade fever this evening PHYSICAL EXAMINATION: No specific tenderness in the right upper quadrant she is moderately tender through the epigastric mid abdomen region on palpation I have greeted and performed a rapid initial assessment of this patient. A comprehensive ED assessment and evaluation of the patient, analysis of test results and completion of medical decision making process will be conducted by an additional ED providers. Please note that clinical decision making for this patient was made during the 2019 pandemic of novel coronavirus which caused a significant strain on the healthcare system including at this particular facility. Criteria for admission discharge and level of care decisions as well as treatment decisions have necessarily changed TRAVEL OUTSIDE OF THE [place] IN LAST 30 DAYS: No - Related Data Allergies/Adverse Reactions: No Known Allergies Allergy (Verified 06/16/20 10:23) Past Medical History - Social History Frequency of alcohol use: None Drug Abuse: None - Past Medical History Cardiac Medical History: Reports: Hx Hypertension Denies: Hx Heart Attack Pulmonary Medical History: Reports: Hx Asthma, Hx Pneumonia Denies: Hx Bronchitis, Hx COPD, Hx Tuberculosis Neurological Medical History: Reports: Hx Migraine. Denies: Hx Seizures Renal/ Medical History: Denies: Hx Peritoneal Dialysis GI Medical History: Reports: Hx Gastritis, Hx Pancreatitis Musculoskeltal Medical History: Reports Hx Arthritis - WITH Psychiatric Medical History: Denies: Hx Depression Past Surgical History: Reports: Hx Cholecystectomy, Hx Orthopedic Surgery. Denies: Hx Hysterectomy - Immunizations Hx Diphtheria, Pertussis, Tetanus Vaccination: No Physical Exam - Vital signs Vitals: Temp Pulse Resp BP Pulse Ox 100.2 F 107 H 22 H 148/101 H 94 07/25/20 18:53 07/25/20 18:53 07/25/20 18:53 07/25/20 18:53 07/25/20 18:53 Course - Vital Signs Vital signs: Temp Pulse Resp BP Pulse Ox 100.2 F 107 H 22 H 148/101 H 94 07/25/20 18:53 07/25/20 18:53 07/25/20 18:53 07/25/20 18:53 07/25/20 18:53 Doctor's Discharge - Discharge Referrals: DAVE CAMARA PA [Primary Care Provider] - Follow up as needed
[2020-07-25 20:04] LABS: ABSOLUTE EOSINOPHILS # (AUTO) 0.1 10^3/uL (0.0-0.6); ABSOLUTE LYMPHOCYTES (AUTO) 2.6 10^3/uL (0.5-4.7); ABSOLUTE MONOCYTES (AUTO) 0.4 10^3/uL (0.1-1.4); ABSOLUTE NEUT (AUTO) 2.4 10^3/uL (1.7-8.2); BASOPHILS % (AUTO) 0.8 % (0-2); EOSINOPHILS % (AUTO) 1.9 % (0-6); HEMATOCRIT 40.5 % (36.0-47.0); HEMOGLOBIN 14.2 g/dL (12.0-15.5); MEAN CORPUSCULAR HEMOGLOBIN 30.9 pg (27.0-33.4); MEAN CORPUSCULAR VOLUME 88 fl (80-97); PLATELET COUNT 212 10^3/uL (150-450); RED CELL DISTRIBUTION WIDTH 13.3 % (11.5-14.0); SEGMENTED NEUTROPHILS % (AUTO) 43.3 % (42-78); TOTAL CELLS COUNTED % (AUTO) 100 %; WHITE BLOOD COUNT 5.6 10^3/uL (4.0-10.5)
[2020-07-25 20:05] LABS: APPEARANCE,URINE SLIGHTLY-CLOUDY; BILIRUBIN,URINE NEGATIVE (NEGATIVE); COLOR,URINE YELLOW; GLUCOSE, URINE >=500 mg/dL (NEGATIVE); KETONES,URINE NEGATIVE (NEGATIVE); LEUKOCYTE ESTERASE,URINE NEGATIVE (NEGATIVE); NITRITE,URINE NEGATIVE (NEGATIVE); PROTEIN,URINE NEGATIVE (NEGATIVE); URINE SPECIFIC GRAVITY 1.024; UROBILINOGEN,URINE NEGATIVE mg/dL (<2.0)
[2020-07-25 20:16] LABS: ALBUMIN 4.6 g/dL (3.5-5.0); ALKALINE PHOSPHATASE 75 U/L (38-126); ANION GAP 11 (5-19); ASPARTATE AMINO TRANSFERASE 40 U/L (14-36); BILIRUBIN,DIRECT 0.2 mg/dL (0.0-0.4); BILIRUBIN,TOTAL 0.2 mg/dL (0.2-1.3); BLOOD UREA NITROGEN 18 mg/dL (7-20); CALCIUM 9.7 mg/dL (8.4-10.2); CARBON DIOXIDE 21 mmol/L (22-30); CHLORIDE 109 mmol/L (98-107); GLUCOSE 111 mg/dL (75-110); POTASSIUM 3.8 mmol/L (3.6-5.0); TOTAL PROTEIN 7.8 g/dL (6.3-8.2)
[2020-07-25] MEDS ORDERED: LIDOCAINE 2% VISCOUS SOLN 15 ML UDCUP PO ONE (20:54)
[2020-07-25] MEDS ORDERED: MAG HYDROX/AL HYDROX/SIMETH SUSP 30 ML UDCUP PO ONE (20:54)
[2020-07-25] MEDS ORDERED: METOCLOPRAMIDE HCL ORAL SOLN 10 MG/10 ML UDCUP PO ONE (20:54)
--- NOTE | 2020-07-25 20:56 | ER Document Report ---
ED GI/ - General Chief Complaint: Abdominal Pain Stated Complaint: ABDOMINAL PAIN,NAUSEA Time Seen by Provider: 07/25/20 19:02 Primary Care Provider: DAVE CAMARA PA [Primary Care Provider] - Follow up in 3-5 days TRAVEL OUTSIDE OF THE [place] IN LAST 30 DAYS: No - HPI Notes: 07/26/20 01:07 Patient is a 30-year-old female with a past medical history of autoimmune hepatitis and cholecystectomy who presents with epigastric pain that is sharp. She states she woke up with the pain this morning. She also states she has nausea but no vomiting. She had chicken nuggets last night which she has never had before. She denies any diarrhea or constipation. No fevers or chills. No similar symptoms in other family members. No Covid concerns. - Related Data Allergies/Adverse Reactions: No Known Allergies Allergy (Verified 06/16/20 10:23) Past Medical History - General Information source: Patient - Social History Smoking Status: Never Smoker Frequency of alcohol use: None Drug Abuse: None Family History: DM, Other - Father with pancreatitis - Past Medical History Cardiac Medical History: Reports: Hx Hypertension Denies: Hx Heart Attack Pulmonary Medical History: Reports: Hx Asthma, Hx Pneumonia Denies: Hx Bronchitis, Hx COPD, Hx Tuberculosis Neurological Medical History: Reports: Hx Migraine. Denies: Hx Seizures Renal/ Medical History: Denies: Hx Peritoneal Dialysis GI Medical History: Reports: Hx Gastritis, Hx Pancreatitis Musculoskeletal Medical History: Reports Hx Arthritis - WITH Psychiatric Medical History: Denies: Hx Depression Past Surgical History: Reports: Hx Cholecystectomy, Hx Orthopedic Surgery. Denies: Hx Hysterectomy - Immunizations Hx Diphtheria, Pertussis, Tetanus Vaccination: No Hx Pneumococcal Vaccination: 05/25/14 Review of Systems - Review of Systems Notes: CONSTITUTIONAL: No fever, fatigue or weight loss. SKIN: No rash. HENT: No congestion, ear pain, or sore throat. EYES: No recent vision problems or eye pain. CARDIOVASCULAR: No chest pain or edema. RESPIRATORY: No cough, shortness of breath, congestion, or wheezing. GASTROINTESTINAL: Positive for abdominal pain. Positive for nausea. No vomiting, diarrhea, constipation. GENITOURINARY: No dysuria. MUSCULOSKELETAL: No joint pain or swelling. LYMPHATIC: No swollen glands. NEUROLOGIC: No seizures. No headache, focal weakness or sensory changes. HEMATOLOGIC: No unusual bruising or bleeding. PSYCHIATRIC: No depression or anxiety. Physical Exam - Vital signs Vitals: Temp Pulse Resp BP Pulse Ox 100.2 F 107 H 22 H 148/101 H 94 07/25/20 18:53 07/25/20 18:53 07/25/20 18:53 07/25/20 18:53 07/25/20 18:53 - General General appearance: Appears well In distress: None Notes: VITAL SIGNS: Within normal limits. GENERAL: No acute distress, non-toxic appearance. HEAD: Normal with no signs of head trauma. EYES: Conjunctiva normal, no discharge. EARS: Hearing grossly intact. NOSE: Normal. NECK: Normal range of motion, no tenderness, supple, no lymphadenopathy, No adenopathy, no JVD. CHEST: Clear breath sounds bilaterally. CARDIAC: Regular rate and rhythm. VASCULAR: No Edema. ABDOMEN: Discomfort to epigastric palpation. No lower quadrant discomfort. Abdomen is soft. No rigidity. No guarding. GASTROINTESTINAL: Bowel sounds normal MUSCULOSKELETAL: Good range of motion of all major joints. Extremities without clubbing, cyanosis or edema. NEUROLOGICAL: Alert and oriented x 3. No focal sensory or strength deficits. Speech normal. Follows commands appropriately. PSYCHIATRIC: Normal Affect, judgement and mood. SKIN: Normal appearance with no rashes or lesions. Course - Re-evaluation Re-evalutation: 07/26/20 01:11 Patient's lab work and CT scan are unremarkable. Her lipase is normal. She states she did have some relief after the GI cocktail. Patient states that she has decreased gastric emptying and this could be a cause. She states she just wanted to make sure that her labs and her CAT scan is okay as she does have a history of autoimmune pancreatitis. Patient was told to follow-up with her GI doctor. She states she sees one in [place]. I will discharge her with a trial of Reglan as that may help her gastric emptying as well as help with nausea. Patient was given strict return precautions to return to the ER in 24 hours if symptoms are not improved. She is very agreeable to this plan. - Vital Signs Vital signs: Temp Pulse Resp BP Pulse Ox 98.5 F 85 17 150/86 H 99 07/25/20 23:04 07/25/20 23:04 07/25/20 23:04 07/25/20 23:04 07/25/20 23:04 - Laboratory Results Result Diagrams: 07/25/20 19:46 07/25/20 19:46 Laboratory Results Interpreted: 07/25/20 07/25/20 07/25/20 19:46 19:46 19:50 Lymph % (Auto) 46.0 H Chloride 109 H Carbon Dioxide 21 L Creatinine 0.48 L Glucose 111 H AST 40 H ALT 108 H Urine Glucose (UA) >=500 H Critical Laboratory Results Reviewed: No Critical Results - Radiology Results Critical Radiology Results Reviewed: No Critical Results Discharge - Discharge Clinical Impression: Epigastric pain, Nausea Condition: Stable Disposition: HOME, SELF-CARE Instructions: Abdominal Pain ([facility]) Additional Instructions: Your work-up today is reassuring. Please make sure you are staying hydrated. Please make sure you eat light meals such as chicken broth, bananas, crackers until you feel better. Follow-up with your GI doctor. Return to the ER immediately within 24 hours if your symptoms have not improved, you develop a fever, vomiting, any other concerning symptoms. Prescriptions: Metoclopramide HCl [Reglan] 5 mg PO TID PRN #12 tablet PRN Reason: Referrals: DAVE CAMARA PA [Primary Care Provider] - Follow up in 3-5 days
--- NOTE | 2020-07-25 21:44 | RADIOLOGY REPORT (SQ) ---
EXAM DESCRIPTION: CT ABDOMEN PELVIS WITH IV CONTRAST COMPLETED DATE/TME: 07/25/2020 20:42 CLINICAL HISTORY: 30 years, Female, eval for pancreatitis COMPARISON: June 16, 2020 TECHNIQUE: Postcontrast images of the abdomen and pelvis were obtained with 100 mL Omnipaque 300 intravenously. Images stored on PACS. All CT scanners at this facility use dose modulation, iterative reconstruction, and/or weight based dosing when appropriate to reduce radiation dose to as low as reasonably achievable (ALARA). [facility]: Dose Right [facility]: CareDose [facility]: Dose Right [facility]: Teradose 4D [facility]: [employer] LIMITATIONS: None. FINDINGS: Visualized lung bases are unremarkable. There is fatty infiltration of the liver. The patient is again noted to be status post cholecystectomy. There is a 7 mm hypodensity posterior midpole left kidney, stable in retrospect in 2 small further characterize but most likely a tiny cyst. The right kidney, adrenals, spleen, and pancreas are unremarkable. There is sigmoid diverticulosis without evidence of diverticulitis. The appendix is within normal limits. There is no free fluid or free air. There is no lymphadenopathy. The abdominal aorta is normal in caliber. No acute or suspicious bony abnormality is seen. IMPRESSION: 1. No acute abnormality is seen. 2. Hepatic steatosis and colonic diverticulosis. TECHNICAL DOCUMENTATION: Quality ID # [id number]: Final reports with documentation of one or more dose reduction techniques (e.g., Automated exposure control, adjustment of the mA and/or kV according to patient size, use of iterative reconstruction technique) copyright 2011 [employer]- All Rights Reserved
[2020-07-25 23:05] VITALS: BP 150/86
--- OUTSIDE RECORDS SUMMARY | 2020-07-28 10:37 | XMS REPORT ---
:1990 Author Organization [facility] Address [facility] [address] [place] [id number] Care Team Providers Name Role Phone Perez Attending Clinician Unavailable Allergies, Adverse Reactions, Alerts This patient has no known allergies or adverse reactions. Medications This patient has no known medications. Problems Condition Condition Condition Status Onset Resolution Last Treatin g Comments Name Details Category Date Date Treatment Clinician Date Not on file Not on file [id number] Procedures Procedure Date / Time Performed Performing Clinician Devic e OFFICE/OUTPATIENT VISIT EST 2015-03-05 12:00:00 Results Test Description Test Time Test Comments Text Results Atomic Results Result Comments SARS-CoV-2 RNA Resp Ql DOMINIC+probe 2020-06-04 00:00:00 Test Item Value Reference Range Comments SARS-CoV-2 RNA Resp Ql DOMINIC+probe Not detected [facility] Case ID: (test code = 35408-8) [id number] SARS-CoV-2 RNA Resp Ql DOMINIC+[id number] 00:00:00 Test Item Value Reference Range Comments SARS-CoV-2 RNA Resp Ql Not detected [facility] Case DOMINIC+probe (test code = ID: [id number]) SARS-CoV-2 RNA Resp Ql DOMINIC+[id number] 00:00:00 Test Item Value Reference Range Comments SARS-CoV-2 RNA Resp Ql Not detected [facility] Case DOMINIC+probe (test code = ID: [id number]) SARS-CoV-2 RNA Resp Ql DOMINIC+[id number] 00:00:00 Test Item Value Reference Range Comments SARS-CoV-2 RNA Resp Ql Not detected [facility] Case DOMINIC+probe (test code = ID: [id number]) Assessments Condition Name Status Diagnosis Date Treating Clinici an Acute upper respiratory infections of Active unspecified site Epistaxis Active Conjunctivitis, unspecified Active Unspecified sinusitis (chronic) Active Encounters Start End Encounter Admission Attending Care Care Encounter Date/Time Date/Time Type Type Clinicians Facility Department ID 2019-09-20 2019-09-20 Outpatient [facility] [id number] 00:00:00 00:00:00 2015-03-05 2015-03-05 Outpatient [facility]Mary [place] 9C [id number] 12:00:00 12:00:00 [facility] [id number] s [id number] [facility], Plan of Treatment Planned Activity Planned Date Details Comments Future Scheduled Test [code = ] Future Scheduled Test [code = ] Social History This patient has no known social history. Vital Signs This patient has no known vital signs.
== END 2020-07-25 23:04 | disposition home or self-care (01) ==
LOC: ER 18:29
DX: R10.13 Epigastric pain (principal); R11.0 Nausea; K76.0 Fatty (change of) liver, not elsewhere classified; K57.30 Diverticulosis of large intestine without perforation or abscess without bleeding; I10 Essential (primary) hypertension; J45.909 Unspecified asthma, uncomplicated; Z87.19 Personal history of other diseases of the digestive system; Z90.49 Acquired absence of other specified parts of digestive tract
CPT/HCPCS: 99285; 96374; 36415; 83690; 84703; 85025; 80053; 81001; 74177; J3490; J2270; J2405